=== PATIENT | female | born 1960 | race Two or more races ===

== ENCOUNTER 2019-12-31 19:01 | Emergency (ER) | payer MEDICAID, OTHER ==
[~2019-12-31] VITALS: Ht 157.5 cm; Wt 78.0 kg
[2019-12-31 19:26] VITALS: BP 153/83
[2019-12-31 20:02] LABS: Basophils # (auto) 0.1 10 ^3/uL (0-0.2); Basophils % (auto) 1.1 % (0.0-2.0); Eosinophils # (auto) 0.2 10 ^3/uL (0-0.8); Eosinophils % (auto) 2.6 % (0.0-7.0); Hematocrit 44.1 % (36.0-46.0); Hemoglobin 15.2 g/dL (12.2-16.2); Lymphocytes # (auto) 1.6 10 ^3/uL (0.4-5.4); Lymphocytes % (auto) 19.6 % (10.0-50.0); Mean Corpuscular Hemoglobin 28.6 pg (28.0-32.0); Mean Corpuscular Hgb Conc. 34.5 g/dL (32.0-36.0); Mean Corpuscular Volume 82.9 fL (80.0-100.0); Monocytes # (auto) 0.7 10 ^3/uL (0-1.3); Monocytes % (auto) 8.7 % (0.0-12.0); Neutrophils # (auto) 5.4 10 ^3/uL (1.6-8.6); Nucleated Red Blood Cells % 0.1 %; Platelet Count (auto) 215 10^3/uL (140-450); Red Blood Cells 5.32 10^6/uL (4.0-5.20); Red Cell Distribution Width 13.5 % (11.8-14.3); White Blood Cell 7.9 10^3/uL (4.4-10.8)
[2019-12-31 20:16] LABS: INR 1.41 (0.9-1.15); Partial Thromboplastin Time 29.3 sec (23.64-32.05)
[2019-12-31 20:19] LABS: Alanine Aminotransferase 31 U/L (13-56); Albumin 3.1 g/dL (3.4-5.0); Anion Gap 6 (5-15); Blood Urea Nitrogen 18 mg/dL (7-18); Carbon Dioxide 28 mmol/L (21-32); Chloride 97 mmol/L (98-107); Glucose 329 mg/dL (74-106); Magnesium 2.4 mg/dL (1.6-2.6); Sodium 131 mmol/L (136-145)
[2019-12-31 20:24] LABS: Alkaline Phosphatase 189 U/L (45-117); Aspartate Aminotransferase 25 U/L (15-37); BUN/Creatinine Ratio 14.1; Bilirubin, Total 0.4 mg/dL (0.2-1.0); GFR African American 55 mL/min; GFR Non-African American 45 mL/min; Total Protein 9.4 g/dL (6.4-8.2)
[2019-12-31 21:02] LABS: Urine Bacteria NONE SEEN /hpf (None Seen); Urine Blood 1+ /uL (Negative); Urine Specific Gravity 1.023 (1.001-1.035); Urine WBC 30 /hpf (0 - 5)
== END 2020-01-01 01:02 | disposition left against medical advice (07) ==
LOC: ER 19:03
DX: R42 Dizziness and giddiness (principal); M79.605 Pain in left leg; Z53.21 Procedure and treatment not carried out due to patient leaving prior to being seen by health care provider
CPT/HCPCS: 36415; 70450; 71045; 80053; 81001; 82010; 82140; 82962; 83735; 83880; 84484; 85025; 85610; 85730; 93005

== ENCOUNTER 2022-05-13 13:21 | Emergency (ER) | payer MEDICAID ==
[~2022-05-13] VITALS: Ht 162.6 cm; Wt 88.5 kg
[2022-05-13] MEDS ORDERED: cefTRIAXone SOD 500 MG VL IM ONE (14:00)
[2022-05-13 14:48] LABS: Basophils # (auto) 0 10 ^3/uL (0-0.2); Basophils % (auto) 0.6 % (0.0-2.0); Eosinophils # (auto) 0.3 10 ^3/uL (0-0.8); Eosinophils % (auto) 4.3 % (0.0-7.0); Hemoglobin 14.4 g/dL (12.2-16.2); Lymphocytes # (auto) 1.4 10 ^3/uL (0.4-5.4); Lymphocytes % (auto) 20.4 % (10.0-50.0); Mean Corpuscular Hemoglobin 28.6 pg (28.0-32.0); Mean Corpuscular Hgb Conc. 33.6 g/dL (32.0-36.0); Mean Corpuscular Volume 85.1 fL (80.0-100.0); Monocytes # (auto) 0.4 10 ^3/uL (0-1.3); Monocytes % (auto) 6.1 % (0.0-12.0); Neutrophils # (auto) 4.5 10 ^3/uL (1.6-8.6); Neutrophils % (auto) 68.6 % (37.0-80.0); Nucleated Red Blood Cells % 0.1 %; Red Blood Cells 5.05 10^6/uL (4.0-5.20); Red Cell Distribution Width 13.9 % (11.8-14.3); White Blood Cell 6.6 10^3/uL (4.4-10.8)
[2022-05-13 15:04] LABS: Albumin 3.9 g/dL (3.4-5.0); BUN/Creatinine Ratio 17.7; Calcium 9.2 mg/dL (8.5-10.1); Potassium 4.2 mmol/L (3.5-5.1)
[2022-05-13 15:07] LABS: Bilirubin, Total 0.5 mg/dL (0.2-1.0); Total Protein 8.4 g/dL (6.4-8.2)
[2022-05-13] MEDS ORDERED: HYDR1OIN EX (15:40)
[2022-05-13] MEDS ORDERED: LIDOCAINE 1% (LOCAL ANESTH.) PF 5ml SDV ONE (15:51)
[2022-05-13 16:39] VITALS: BP 156/82
[2022-05-13] MEDS ORDERED: LIDOCAINE 1% HCL (LOCAL ANESTH.) INJ 20ML MDV ID ONE (16:45)
== END 2022-05-13 16:40 | disposition home or self-care (01) ==
LOC: ER 13:21
DX: R21 Rash and other nonspecific skin eruption (principal); R10.31 Right lower quadrant pain; I10 Essential (primary) hypertension; E11.9 Type 2 diabetes mellitus without complications; I25.2 Old myocardial infarction; Z86.73 Personal history of transient ischemic attack (TIA), and cerebral infarction without residual deficits; Z90.49 Acquired absence of other specified parts of digestive tract; Z90.710 Acquired absence of both cervix and uterus; Z79.899 Other long term (current) drug therapy
CPT/HCPCS: 36415; 74176; 80053; 85025; 96372; 99284; J0696

== ENCOUNTER 2022-07-16 12:25 | Emergency (ER) | payer MEDICAID ==
[~2022-07-16] VITALS: Ht 162.6 cm; Wt 191.0 kg
[~2022-07-16 12:25] MED LIST: HYDR1OIN EX
[2022-07-16 13:06] LABS: Basophils # (auto) 0 10 ^3/uL (0-0.2); Basophils % (auto) 0.5 % (0.0-2.0); Eosinophils # (auto) 0.2 10 ^3/uL (0-0.8); Eosinophils % (auto) 4.2 % (0.0-7.0); Hematocrit 42.5 % (36.0-46.0); Hemoglobin 13.9 g/dL (12.2-16.2); Lymphocytes # (auto) 1.3 10 ^3/uL (0.4-5.4); Lymphocytes % (auto) 23.1 % (10.0-50.0); Mean Corpuscular Hemoglobin 27.5 pg (28.0-32.0); Mean Corpuscular Hgb Conc. 32.8 g/dL (32.0-36.0); Mean Corpuscular Volume 83.9 fL (80.0-100.0); Monocytes # (auto) 0.4 10 ^3/uL (0-1.3); Monocytes % (auto) 6.6 % (0.0-12.0); Neutrophils # (auto) 3.7 10 ^3/uL (1.6-8.6); Neutrophils % (auto) 65.6 % (37.0-80.0); Red Blood Cells 5.07 10^6/uL (4.0-5.20); Red Cell Distribution Width 13.5 % (11.8-14.3); White Blood Cell 5.7 10^3/uL (4.4-10.8)
[2022-07-16 13:23] LABS: Albumin 3.5 g/dL (3.4-5.0); Calcium 9.1 mg/dL (8.5-10.1); Magnesium 2.2 mg/dL (1.6-2.6); Potassium 4.5 mmol/L (3.5-5.1)
[2022-07-16 13:26] LABS: BUN/Creatinine Ratio 19.3; Bilirubin, Total 0.4 mg/dL (0.2-1.0); Total Protein 7.9 g/dL (6.4-8.2)
[2022-07-16] MEDS ORDERED: cloNIDine HCL 0.1 MG TAB PO ONE (13:30)
[2022-07-16] MEDS ORDERED: MECL12.514 PO (14:31)
[2022-07-16 15:22] VITALS: BP 145/86
== END 2022-07-16 15:24 | disposition home or self-care (01) ==
LOC: ER 12:25
DX: S09.8XXA Other specified injuries of head, initial encounter (principal); R42 Dizziness and giddiness; I16.0 Hypertensive urgency; I10 Essential (primary) hypertension; F12.10 Cannabis abuse, uncomplicated; M25.562 Pain in left knee; Z86.73 Personal history of transient ischemic attack (TIA), and cerebral infarction without residual deficits; Z90.49 Acquired absence of other specified parts of digestive tract; Z98.51 Tubal ligation status; Z90.710 Acquired absence of both cervix and uterus; Z87.891 Personal history of nicotine dependence; W01.0XXA Fall on same level from slipping, tripping and stumbling without subsequent striking against object, initial encounter; Y93.89 Activity, other specified; Y92.89 Other specified places as the place of occurrence of the external cause; Y99.8 Other external cause status
CPT/HCPCS: 36415; 70450; 72100; 73562; 80053; 82962; 83735; 84484; 85025; 93005

== ENCOUNTER 2022-08-04 15:58 | Emergency (ER) | payer MEDICAID ==
[~2022-08-04] VITALS: Ht 162.6 cm; Wt 82.0 kg
[~2022-08-04 15:58] MED LIST changes: +MECL12.514 PO
[2022-08-04] MEDS ORDERED: LABETALOL HCL 5 MG/ML 4ML SYRINGE IV ONE (16:30)
[2022-08-04] MEDS ORDERED: ASPirin 325 MG TAB PO ONE (17:30)
[2022-08-04] MEDS ORDERED: IOHEXOL 350 MG/ML 100ML IJ ONE (18:31)
[2022-08-04 18:38] VITALS: BP 180/95
[2022-08-04 19:01] LABS: Basophils # (auto) 0 10 ^3/uL (0-0.2); Basophils % (auto) 0.3 % (0.0-2.0); Eosinophils # (auto) 0.1 10 ^3/uL (0-0.8); Eosinophils % (auto) 1.8 % (0.0-7.0); Hematocrit 44.9 % (36.0-46.0); Hemoglobin 15.1 g/dL (12.2-16.2); Lymphocytes # (auto) 1.2 10 ^3/uL (0.4-5.4); Lymphocytes % (auto) 17.4 % (10.0-50.0); Mean Corpuscular Hgb Conc. 33.6 g/dL (32.0-36.0); Mean Corpuscular Volume 83.3 fL (80.0-100.0); Monocytes # (auto) 0.4 10 ^3/uL (0-1.3); Monocytes % (auto) 6.4 % (0.0-12.0); Neutrophils % (auto) 74.1 % (37.0-80.0); Nucleated Red Blood Cells % 0.1 %; Red Blood Cells 5.39 10^6/uL (4.0-5.20); Red Cell Distribution Width 13.8 % (11.8-14.3); White Blood Cell 6.8 10^3/uL (4.4-10.8)
[2022-08-04 19:17] LABS: Potassium 4.3 mmol/L (3.5-5.1)
[2022-08-04 19:20] LABS: Albumin 3.7 g/dL (3.4-5.0); BUN/Creatinine Ratio 16.9; Calcium 9.4 mg/dL (8.5-10.1); Magnesium 2.4 mg/dL (1.6-2.6)
[2022-08-04 19:23] LABS: Bilirubin, Total 0.6 mg/dL (0.2-1.0); Total Protein 8.3 g/dL (6.4-8.2)
== END 2022-08-04 19:03 | disposition short-term general hospital (02) ==
LOC: ER 15:58
DX: R29.810 Facial weakness (principal); R47.81 Slurred speech; R68.89 Other general symptoms and signs; F12.90 Cannabis use, unspecified, uncomplicated; E11.9 Type 2 diabetes mellitus without complications; I10 Essential (primary) hypertension; Z86.73 Personal history of transient ischemic attack (TIA), and cerebral infarction without residual deficits; Z90.49 Acquired absence of other specified parts of digestive tract; Z90.710 Acquired absence of both cervix and uterus; Z98.51 Tubal ligation status; Z87.891 Personal history of nicotine dependence
CPT/HCPCS: 36415; 70450; 70551; 71045; 80053; 82962; 83735; 84484; 85025; 93005; 96374; 99285; J3490

== ENCOUNTER 2022-08-20 11:36 | Inpatient (IN) | payer MEDICAID ==
[~2022-08-20] VITALS: Ht 162.6 cm; Wt 82.7 kg
[2022-08-20] MEDS ORDERED: LIDOCAINE VISCOUS 2% 15ML UD PO ONE (13:15)
[2022-08-20] MEDS ORDERED: ONDANSETRON HCL 4 MG/2 ML VIAL IV ONE (13:15)
[2022-08-20] MEDS ORDERED: FAMOTIDINE (10MG/ML) 2ML VL IV ONE (13:15)
[2022-08-20] MEDS ORDERED: MAALOX PLUS or MAALOX 30 ML PO ONE (13:15)
[2022-08-20 14:05] LABS: Basophils # (auto) 0 10 ^3/uL (0-0.2); Basophils % (auto) 0.2 % (0.0-2.0); Eosinophils # (auto) 0.1 10 ^3/uL (0-0.8); Eosinophils % (auto) 0.8 % (0.0-7.0); Hematocrit 45.7 % (36.0-46.0); Hemoglobin 15.2 g/dL (12.2-16.2); Lymphocytes # (auto) 0.9 10 ^3/uL (0.4-5.4); Lymphocytes % (auto) 10.6 % (10.0-50.0); Mean Corpuscular Hemoglobin 28.1 pg (28.0-32.0); Mean Corpuscular Hgb Conc. 33.2 g/dL (32.0-36.0); Mean Corpuscular Volume 84.6 fL (80.0-100.0); Monocytes # (auto) 0.5 10 ^3/uL (0-1.3); Monocytes % (auto) 5.3 % (0.0-12.0); Neutrophils # (auto) 7.1 10 ^3/uL (1.6-8.6); Neutrophils % (auto) 83.1 % (37.0-80.0); Nucleated Red Blood Cells % 0.1 %; Red Blood Cells 5.41 10^6/uL (4.0-5.20); Red Cell Distribution Width 14.2 % (11.8-14.3); White Blood Cell 8.6 10^3/uL (4.4-10.8)
[2022-08-20 14:06] LABS: BUN/Creatinine Ratio 15.4; Calcium 9.6 mg/dL (8.5-10.1); Potassium 3.5 mmol/L (3.5-5.1)
[2022-08-20 14:09] LABS: Total Protein 8.7 g/dL (6.4-8.2)
[2022-08-20 15:23] LABS: Urine Bacteria MOD /hpf (None Seen); Urine Blood TRACE /uL (Negative); Urine Budding Yeast FEW /hpf (None Seen); Urine Mucus FEW (None Seen); Urine Specific Gravity 1.027 (1.001-1.035); Urine WBC 80 /hpf (0 - 5)
[2022-08-20] MEDS: LACTATED RINGER'S 1,000 ML IV ONE ×2 (16:13→16:47)
[2022-08-20] MEDS ORDERED: HYDROcodone-ACET 5/325MG TAB PO ONE ×2 (16:45)
[2022-08-20] MEDS ORDERED: cefTRIAXone 1GM/50ML D5W 50 ML IV ONE (16:45)
[2022-08-20] MEDS ORDERED: cloNIDine HCL 0.1 MG TAB PO ONE (16:45)
[2022-08-20] MEDS ORDERED: ERTAPENEM SOD INJ 1 GM in SODIUM CHL 0.9% 50 ML IV ONE (17:15)
[2022-08-20] MEDS ORDERED: DEXTROSE (50%) 50ML SYRG IV PRN (19:30)
[2022-08-20] MEDS ORDERED: DOCUSATE SOD 100 MG CAP PO PRN (19:30)
[2022-08-20] MEDS ORDERED: ERTAPENEM SOD 1 GM INJ VIAL ONE (20:27)
[2022-08-20] MEDS: SODIUM CHLORIDE 0.9% 1,000 ML IV SCH (20:29)
[2022-08-20] MEDS: InsuLIN REG 1unit/0.01ml Soln (100units/ml) SC SCH (22:00)
[2022-08-20] MEDS: ACCU-CHEK COMFORT CURVE STRIP VI SCH (22:00)
[2022-08-21] MEDS: ONDANSETRON HCL 4 MG/2 ML VIAL IV PRN ×2 (00:04→22:40)
[2022-08-21 00:13] LABS: Sodium Urine 25 mmol/L (40-220)
[2022-08-21 01:18] LABS: Creatinine, Urine 385 mg/dL (30.0-125.0)
[2022-08-21] MEDS: SODIUM CHLORIDE 0.9% 1,000 ML IV SCH ×3 (03:50→20:30)
[2022-08-21 06:22] LABS: Albumin 3.4 g/dL (3.4-5.0); Calcium 9.4 mg/dL (8.5-10.1); Potassium 4.5 mmol/L (3.5-5.1)
[2022-08-21 06:25] LABS: BUN/Creatinine Ratio 19.1
[2022-08-21 06:27] LABS: Bilirubin, Total 0.8 mg/dL (0.2-1.0); Total Protein 7.8 g/dL (6.4-8.2)
[2022-08-21 06:36] LABS: Basophils # (auto) 0 10 ^3/uL (0-0.2); Basophils % (auto) 0.4 % (0.0-2.0); Eosinophils # (auto) 0.1 10 ^3/uL (0-0.8); Eosinophils % (auto) 1.1 % (0.0-7.0); Hematocrit 41.9 % (36.0-46.0); Hemoglobin 13.9 g/dL (12.2-16.2); Lymphocytes # (auto) 0.9 10 ^3/uL (0.4-5.4); Lymphocytes % (auto) 14.1 % (10.0-50.0); Mean Corpuscular Hemoglobin 28.4 pg (28.0-32.0); Mean Corpuscular Hgb Conc. 33.2 g/dL (32.0-36.0); Mean Corpuscular Volume 85.6 fL (80.0-100.0); Monocytes # (auto) 0.6 10 ^3/uL (0-1.3); Monocytes % (auto) 8.3 % (0.0-12.0); Neutrophils # (auto) 5.1 10 ^3/uL (1.6-8.6); Neutrophils % (auto) 76.1 % (37.0-80.0); Nucleated Red Blood Cells % 0.7 %; Red Blood Cells 4.89 10^6/uL (4.0-5.20); Red Cell Distribution Width 14.4 % (11.8-14.3); White Blood Cell 6.7 10^3/uL (4.4-10.8)
[2022-08-21] MEDS: ACCU-CHEK COMFORT CURVE STRIP VI SCH ×4 (06:55→21:28)
[2022-08-21] MEDS: InsuLIN REG 1unit/0.01ml Soln (100units/ml) SC SCH ×4 (06:55→21:28)
[2022-08-21] MEDS ORDERED: ERTAPENEM SOD INJ 1 GM in SODIUM CHL 0.9% 50 ML IV SCH (10:00)
[2022-08-21] MEDS: ENOXAPARIN SOD 40 MG/0.4 ML SYRINGE SC SCH (13:50)
[2022-08-21] MEDS: PANTOPRAZOLE 40 MG/10 ML VIAL INJ IV SCH (13:50)
[2022-08-21] MEDS: CEFEPIME 2 GM in SODIUM CHL 0.9% 50 ML IV SCH (15:41)
[2022-08-21 22:00] VITALS: BP 180/82
[2022-08-21] MEDS: MORPHINE SULFATE INJ 2 MG/ml SYRG IV PRN (22:54)
[2022-08-22 02:04] VITALS: BP 156/82
[2022-08-22] MEDS: CEFEPIME 2 GM in SODIUM CHL 0.9% 50 ML IV SCH ×2 (02:06→06:22)
[2022-08-22] MEDS: hydrALAZINE HCL 20 MG/ML VL IV PRN ×2 (02:36→10:57)
[2022-08-22] MEDS: MORPHINE SULFATE INJ 2 MG/ml SYRG IV PRN ×2 (04:01→10:57)
[2022-08-22] MEDS: SODIUM CHLORIDE 0.9% 1,000 ML IV SCH ×3 (04:50→21:30)
[2022-08-22 05:00] VITALS: BP 153/74
[2022-08-22] MEDS: ACCU-CHEK COMFORT CURVE STRIP VI SCH ×4 (06:22→22:12)
[2022-08-22] MEDS: InsuLIN REG 1unit/0.01ml Soln (100units/ml) SC SCH ×4 (06:23→22:16)
[2022-08-22] MEDS: PANTOPRAZOLE 40 MG/10 ML VIAL INJ IV SCH (08:30)
[2022-08-22] MEDS: ENOXAPARIN SOD 40 MG/0.4 ML SYRINGE SC SCH (08:31)
[2022-08-22] MEDS: ONDANSETRON HCL 4 MG/2 ML VIAL IV PRN (08:31)
[2022-08-22 09:00] VITALS: BP 150/70
[2022-08-22 12:57] VITALS: BP 169/71
[2022-08-22 17:13] VITALS: BP 140/69
[2022-08-22 22:00] VITALS: BP 149/66
[2022-08-23] MEDS: CEFEPIME 2 GM in SODIUM CHL 0.9% 50 ML IV SCH ×2 (00:18→14:32)
[2022-08-23] MEDS: MORPHINE SULFATE INJ 2 MG/ml SYRG IV PRN ×4 (00:20→20:36)
[2022-08-23] MEDS: SODIUM CHLORIDE 0.9% 1,000 ML IV SCH (05:29)
[2022-08-23] MEDS: InsuLIN REG 1unit/0.01ml Soln (100units/ml) SC SCH ×4 (05:30→20:34)
[2022-08-23] MEDS: ACCU-CHEK COMFORT CURVE STRIP VI SCH ×4 (05:30→20:33)
[2022-08-23] MEDS: ONDANSETRON HCL 4 MG/2 ML VIAL IV PRN ×3 (05:31→22:54)
[2022-08-23 07:14] LABS: Basophils # (auto) 0 10 ^3/uL (0-0.2); Basophils % (auto) 0.3 % (0.0-2.0); Eosinophils # (auto) 0.2 10 ^3/uL (0-0.8); Eosinophils % (auto) 3.1 % (0.0-7.0); Hematocrit 41.2 % (36.0-46.0); Hemoglobin 13.5 g/dL (12.2-16.2); Lymphocytes # (auto) 0.9 10 ^3/uL (0.4-5.4); Lymphocytes % (auto) 14.4 % (10.0-50.0); Mean Corpuscular Hemoglobin 27.8 pg (28.0-32.0); Mean Corpuscular Hgb Conc. 32.7 g/dL (32.0-36.0); Mean Corpuscular Volume 85.1 fL (80.0-100.0); Monocytes # (auto) 0.6 10 ^3/uL (0-1.3); Monocytes % (auto) 10.5 % (0.0-12.0); Neutrophils # (auto) 4.3 10 ^3/uL (1.6-8.6); Neutrophils % (auto) 71.7 % (37.0-80.0); Red Blood Cells 4.84 10^6/uL (4.0-5.20); Red Cell Distribution Width 14.9 % (11.8-14.3)
[2022-08-23 07:39] LABS: Calcium 9.1 mg/dL (8.5-10.1); Potassium 3.8 mmol/L (3.5-5.1)
[2022-08-23 09:00] VITALS: BP 141/63
[2022-08-23] MEDS: ENOXAPARIN SOD 40 MG/0.4 ML SYRINGE SC SCH (11:00)
[2022-08-23] MEDS: PANTOPRAZOLE 40 MG/10 ML VIAL INJ IV SCH (11:00)
[2022-08-23 13:00] VITALS: BP 165/67
[2022-08-23 14:36] VITALS: BP 140/68
[2022-08-23 17:00] VITALS: BP 157/73
[2022-08-23] MEDS: hydrALAZINE HCL 20 MG/ML VL IV PRN (21:35)
[2022-08-24] MEDS: CEFEPIME 2 GM in SODIUM CHL 0.9% 50 ML IV SCH ×2 (00:49→14:00)
[2022-08-24 05:00] VITALS: BP 148/76
[2022-08-24] MEDS: SODIUM CHLORIDE 0.9% 1,000 ML IV SCH ×5 (06:17→22:13)
[2022-08-24 06:18] LABS: Basophils # (auto) 0 10 ^3/uL (0-0.2); Basophils % (auto) 0.3 % (0.0-2.0); Eosinophils # (auto) 0 10 ^3/uL (0-0.8); Eosinophils % (auto) 0.9 % (0.0-7.0); Hematocrit 40.9 % (36.0-46.0); Hemoglobin 13.8 g/dL (12.2-16.2); Lymphocytes # (auto) 0.5 10 ^3/uL (0.4-5.4); Lymphocytes % (auto) 8.7 % (10.0-50.0); Mean Corpuscular Hemoglobin 28.4 pg (28.0-32.0); Mean Corpuscular Hgb Conc. 33.7 g/dL (32.0-36.0); Mean Corpuscular Volume 84.2 fL (80.0-100.0); Monocytes # (auto) 0.7 10 ^3/uL (0-1.3); Monocytes % (auto) 13.3 % (0.0-12.0); Neutrophils # (auto) 4.2 10 ^3/uL (1.6-8.6); Neutrophils % (auto) 76.8 % (37.0-80.0); Nucleated Red Blood Cells % 0.1 %; Red Blood Cells 4.86 10^6/uL (4.0-5.20); Red Cell Distribution Width 14.9 % (11.8-14.3); White Blood Cell 5.4 10^3/uL (4.4-10.8)
[2022-08-24] MEDS: MORPHINE SULFATE INJ 2 MG/ml SYRG IV PRN ×4 (06:20→20:07)
[2022-08-24] MEDS: ONDANSETRON HCL 4 MG/2 ML VIAL IV PRN ×4 (06:20→20:06)
[2022-08-24] MEDS: hydrALAZINE HCL 20 MG/ML VL IV PRN ×2 (06:21→23:14)
[2022-08-24] MEDS: ACCU-CHEK COMFORT CURVE STRIP VI SCH ×4 (06:24→22:12)
[2022-08-24] MEDS: InsuLIN REG 1unit/0.01ml Soln (100units/ml) SC SCH ×4 (06:25→22:00)
[2022-08-24 06:30] LABS: BUN/Creatinine Ratio 9.2; Calcium 9.4 mg/dL (8.5-10.1)
[2022-08-24] MEDS: SUCRALFATE 1 GM/10 ML ORAL SUSP PO SCH ×4 (07:12→22:13)
[2022-08-24 08:46] VITALS: BP 109/67
[2022-08-24] MEDS: PANTOPRAZOLE 40 MG/10 ML VIAL INJ IV SCH (09:51)
[2022-08-24] MEDS: ENOXAPARIN SOD 40 MG/0.4 ML SYRINGE SC SCH (09:52)
[2022-08-24] MEDS ORDERED: NITR-87 PO (12:34)
[2022-08-24] MEDS ORDERED: SUCR1TAB PO (12:34)
[2022-08-24] MEDS ORDERED: ONDA-144 PO (12:34)
[2022-08-24] MEDS ORDERED: PANT40T PO (12:34)
[2022-08-24 13:00] VITALS: BP 138/83
[2022-08-24 16:36] VITALS: BP 141/65
[2022-08-24 18:02] VITALS: BP 148/84
[2022-08-24] MEDS: NYSTATIN TOPICAL POWDER 15GM TOP SCH (22:00)
[2022-08-24 23:51] VITALS: BP 157/85
[2022-08-25] MEDS: CEFEPIME 2 GM in SODIUM CHL 0.9% 50 ML IV SCH (01:31)
[2022-08-25] MEDS: ONDANSETRON HCL 4 MG/2 ML VIAL IV PRN ×2 (01:33→05:30)
[2022-08-25] MEDS: MORPHINE SULFATE INJ 2 MG/ml SYRG IV PRN ×2 (01:34→05:30)
[2022-08-25] MEDS: ACCU-CHEK COMFORT CURVE STRIP VI SCH (05:31)
[2022-08-25] MEDS: SUCRALFATE 1 GM/10 ML ORAL SUSP PO SCH (05:31)
[2022-08-25] MEDS: InsuLIN REG 1unit/0.01ml Soln (100units/ml) SC SCH (05:31)
[2022-08-25 05:58] VITALS: BP 149/78
[2022-08-25 06:00] VITALS: BP 136/80
[2022-08-25 07:17] LABS: Hematocrit 39.7 % (36.0-46.0); Hemoglobin 13.2 g/dL (12.2-16.2); Mean Corpuscular Hemoglobin 28.3 pg (28.0-32.0); Mean Corpuscular Hgb Conc. 33.4 g/dL (32.0-36.0); Mean Corpuscular Volume 84.9 fL (80.0-100.0); Red Blood Cells 4.67 10^6/uL (4.0-5.20); Red Cell Distribution Width 14.9 % (11.8-14.3); White Blood Cell 3.6 10^3/uL (4.4-10.8)
[2022-08-25 07:23] LABS: Basophils % (manual) 0 (0.0-2.0); Blast Cells 0; Eosinophils % (manual) 0 (0-7); Metamyelocytes % 0; Myelocytes % 0; Promyelocytes % 0; Reactive Lymphocytes 0
[2022-08-25 07:42] LABS: BUN/Creatinine Ratio 10.3; Calcium 8.5 mg/dL (8.5-10.1); Potassium 3.9 mmol/L (3.5-5.1)
[2022-08-25] MEDS: SODIUM CHLORIDE 0.9% 1,000 ML IV SCH (07:50)
[2022-08-25 09:36] LABS: Band Neutrophils % (manual) 9; Lymphocytes % (manual) 11 (10.0-50.0); Monocytes % (manual) 19 (0-12)
[2022-08-25] MEDS: ENOXAPARIN SOD 40 MG/0.4 ML SYRINGE SC SCH (10:00)
[2022-08-25] MEDS: NYSTATIN TOPICAL POWDER 15GM TOP SCH (10:00)
[2022-08-25] MEDS: PANTOPRAZOLE 40 MG/10 ML VIAL INJ IV SCH (10:00)
== END 2022-08-25 09:30 | disposition home health service (06) | DRG 720 ==
LOC: ER 11:36 → OVERFLOW 19:28 → WEST WING 08-21 20:15
PROVIDERS: ADMIT Nurse Practitioner Family; ATTEND Family Medicine
DX: A41.51 Sepsis due to Escherichia coli [E. coli] (principal); N17.9 Acute kidney failure, unspecified; N10 Acute pyelonephritis; E11.9 Type 2 diabetes mellitus without complications; E86.0 Dehydration; B19.20 Unspecified viral hepatitis C without hepatic coma; B96.20 Unspecified Escherichia coli [E. coli] as the cause of diseases classified elsewhere; K74.60 Unspecified cirrhosis of liver; J45.909 Unspecified asthma, uncomplicated; I10 Essential (primary) hypertension; R16.1 Splenomegaly, not elsewhere classified; Z20.822 Contact with and (suspected) exposure to COVID-19; F10.10 Alcohol abuse, uncomplicated; F17.200 Nicotine dependence, unspecified, uncomplicated; J44.9 Chronic obstructive pulmonary disease, unspecified; Z90.49 Acquired absence of other specified parts of digestive tract; Z85.528 Personal history of other malignant neoplasm of kidney; Z86.73 Personal history of transient ischemic attack (TIA), and cerebral infarction without residual deficits; I25.2 Old myocardial infarction; Z71.6 Tobacco abuse counseling; Z90.5 Acquired absence of kidney; Z90.710 Acquired absence of both cervix and uterus; Z79.84 Long term (current) use of oral hypoglycemic drugs
CPT/HCPCS: 36415; 71045; 74176; 76705; 80048; 80053; 81001; 82570; 82962; 83605; 83690; 84300; 84484; 85007; 85025; 85027; 87086; 87088; 87186; 87426; 87804; 93005; 96361; 96374; 96375; C9113; G0378; J0696; J1335; J1815; J2405; J3490; J7060

== ENCOUNTER 2023-03-23 12:15 | Inpatient (IN) | payer MEDICAID ==
[~2023-03-23] VITALS: Ht 162.6 cm; Wt 76.0 kg
[~2023-03-23 12:15] MED LIST changes: +ALOG2.5T PO; +CLON0.1T PO; +CRAN500C7 PO; +DIPH50TA9 PO; +FLUT50SP; +HYDR-4297 PO; +IRBE150T49 PO; -MECL12.514 PO; +MECL1TAB31 PO; +NITR-87 PO; +ONDA-144 PO; +PANT40T PO; +SUCR1TAB PO; +TRAM50TA2 PO
[2023-03-23 13:47] LABS: Basophils # (auto) 0 10 ^3/uL (0-0.2); Basophils % (auto) 0.4 % (0.0-2.0); Eosinophils # (auto) 0.2 10 ^3/uL (0-0.8); Eosinophils % (auto) 4.2 % (0.0-7.0); Hematocrit 40.2 % (36.0-46.0); Hemoglobin 13.9 g/dL (12.2-16.2); Lymphocytes # (auto) 1.3 10 ^3/uL (0.4-5.4); Lymphocytes % (auto) 21.2 % (10.0-50.0); Mean Corpuscular Hemoglobin 30.4 pg (28.0-32.0); Mean Corpuscular Hgb Conc. 34.6 g/dL (32.0-36.0); Monocytes # (auto) 0.4 10 ^3/uL (0-1.3); Monocytes % (auto) 6.7 % (0.0-12.0); Neutrophils % (auto) 67.5 % (37.0-80.0); Nucleated Red Blood Cells % 0.1 %; Red Blood Cells 4.56 10^6/uL (4.0-5.20); Red Cell Distribution Width 13.4 % (11.8-14.3)
[2023-03-23 14:02] LABS: Urine Bacteria NONE SEEN /hpf (None Seen); Urine Blood 1+ /uL (Negative); Urine Clarity HAZY (Clear); Urine Color Yellow (Yellow); Urine Mucus FEW (None Seen); Urine Protein, UAD 2+ (Negative); Urine Specific Gravity 1.026 (1.001-1.035); Urine WBC 45 /hpf (0 - 5)
[2023-03-23 14:46] LABS: Erythrocyte Sedimentation Rate 36 mm/hr (0-20)
[2023-03-23 15:28] LABS: Alanine Aminotransferase 14 U/L (7-40); Albumin 4.2 g/dL (3.2-4.8); Alkaline Phosphatase 140 U/L (46-116); Anion Gap 4.9 (5-15); Aspartate Aminotransferase 17 U/L (13-40); BUN/Creatinine Ratio 17.4 (10.0-20.0); Blood Urea Nitrogen 20 mg/dL (9-23); Calcium 9.5 mg/dL (8.5-10.1); Carbon Dioxide 29.1 mmol/L (20-30); Chloride 104 mmol/L (98-107); Glucose 96 mg/dL (74-106); Potassium 4.2 mmol/L (3.5-5.1); Sodium 138 mmol/L (136-145)
[2023-03-23 15:29] LABS: Bilirubin, Total 0.5 mg/dL (0.2-1.0)
[2023-03-23 15:47] LABS: Creatine Kinase IFCC 48 U/L (34-145)
[2023-03-23] MEDS ORDERED: ACETAMINOPHEN 325 MG TAB PO PRN (20:00)
[2023-03-23] MEDS ORDERED: DEXTROSE (50%) 50ML SYRG IV PRN (20:00)
[2023-03-23] MEDS ORDERED: HYDROcodone-ACET 5/325MG TAB PO ONE (20:30)
[2023-03-23] MEDS ORDERED: hydrALAZINE HCL 20 MG/ML VL IV ONE (20:30)
[2023-03-23] MEDS ORDERED: cloNIDine HCL 0.1 MG TAB PO SCH (22:00)
[2023-03-24] MEDS: HYDROcodone-ACET 10/325MG TAB PO PRN ×3 (00:10→19:07)
[2023-03-24] MEDS: hydrALAZINE HCL 25 MG TAB PO SCH ×3 (00:10→21:25)
[2023-03-24] MEDS: ACCU-CHEK COMFORT CURVE STRIP VI SCH ×5 (00:11→21:15)
[2023-03-24] MEDS: InsuLIN REG 1unit/0.01ml Soln (100units/ml) SC SCH ×5 (00:11→21:15)
[2023-03-24 06:42] VITALS: PULSE 64; RESP 18; O2SAT 98
[2023-03-24 06:48] LABS: Basophils # (auto) 0 10 ^3/uL (0-0.2); Basophils % (auto) 0.6 % (0.0-2.0); Eosinophils # (auto) 0.3 10 ^3/uL (0-0.8); Hematocrit 41.8 % (36.0-46.0); Hemoglobin 14.6 g/dL (12.2-16.2); Lymphocytes # (auto) 1.4 10 ^3/uL (0.4-5.4); Lymphocytes % (auto) 24.2 % (10.0-50.0); Mean Corpuscular Hemoglobin 30.5 pg (28.0-32.0); Mean Corpuscular Hgb Conc. 34.8 g/dL (32.0-36.0); Mean Corpuscular Volume 87.6 fL (80.0-100.0); Monocytes # (auto) 0.5 10 ^3/uL (0-1.3); Monocytes % (auto) 8.2 % (0.0-12.0); Neutrophils # (auto) 3.6 10 ^3/uL (1.6-8.6); Nucleated Red Blood Cells % 0.6 %; Red Blood Cells 4.77 10^6/uL (4.0-5.20); Red Cell Distribution Width 13.6 % (11.8-14.3); White Blood Cell 5.8 10^3/uL (4.4-10.8)
[2023-03-24] MEDS: cloNIDine HCL 0.1 MG TAB PO PRN (06:53)
[2023-03-24 07:01] LABS: Alanine Aminotransferase 13 U/L (7-40); Alkaline Phosphatase 147 U/L (46-116); Calcium 9.7 mg/dL (8.5-10.1); Carbon Dioxide 27.8 mmol/L (20-30); Chloride 102 mmol/L (98-107); Glucose 103 mg/dL (74-106)
[2023-03-24 07:02] LABS: Albumin 4.5 g/dL (3.2-4.8); Anion Gap 7.2 (5-15); Aspartate Aminotransferase 18 U/L (13-40); BUN/Creatinine Ratio 14.3 (10.0-20.0); Bilirubin, Total 0.8 mg/dL (0.2-1.0); Blood Urea Nitrogen 15 mg/dL (9-23); Potassium 3.6 mmol/L (3.5-5.1); Sodium 137 mmol/L (136-145)
[2023-03-24 08:00] VITALS: PULSE 55; RESP 18; O2SAT 97
[2023-03-24] MEDS: cefTRIAXone 1GM/50ML D5W 50 ML IV SCH (09:50)
[2023-03-24] MEDS ORDERED: PANTOPRAZOLE 40 MG TAB PO SCH (10:00)
[2023-03-24] MEDS: LOSARTAN POTASSIUM 50 MG TAB PO SCH (10:33)
[2023-03-24 13:57] LABS: Triglycerides 124 mg/dL (< 150)
[2023-03-24 13:58] LABS: LDL Cholesterol 87 mg/dL (< 100)
[2023-03-24 13:59] LABS: Cholesterol 140 mg/dL (< 200); HDL Cholesterol 38 mg/dL (40-59)
[2023-03-24 20:00] VITALS: PULSE 55; RESP 16; O2SAT 97
[2023-03-24] MEDS: ATORVASTATIN 20 MG TAB PO SCH (21:25)
[2023-03-24] MEDS ORDERED: PNEUMOCOCCAL VACC POLYS 25 MCG/0.5 ML VIAL IM ONE (21:45)
[2023-03-24 22:17] VITALS: BP 152/70; PULSE 55; RESP 16; TEMP 97.6; O2SAT 97
[2023-03-25 05:07] VITALS: BP 149/61; PULSE 54; RESP 16; TEMP 97.5; O2SAT 98
[2023-03-25] MEDS: ACCU-CHEK COMFORT CURVE STRIP VI SCH ×4 (06:24→23:48)
[2023-03-25] MEDS: InsuLIN REG 1unit/0.01ml Soln (100units/ml) SC SCH ×4 (06:24→22:00)
[2023-03-25 08:09] LABS: Basophils # (auto) 0 10 ^3/uL (0-0.2); Basophils % (auto) 0.4 % (0.0-2.0); Eosinophils # (auto) 0.3 10 ^3/uL (0-0.8); Eosinophils % (auto) 6.1 % (0.0-7.0); Hematocrit 38.3 % (36.0-46.0); Lymphocytes # (auto) 1.5 10 ^3/uL (0.4-5.4); Lymphocytes % (auto) 28.8 % (10.0-50.0); Mean Corpuscular Hemoglobin 30.2 pg (28.0-32.0); Mean Corpuscular Volume 88.9 fL (80.0-100.0); Monocytes # (auto) 0.5 10 ^3/uL (0-1.3); Monocytes % (auto) 10.2 % (0.0-12.0); Neutrophils # (auto) 2.8 10 ^3/uL (1.6-8.6); Neutrophils % (auto) 54.5 % (37.0-80.0); Nucleated Red Blood Cells % 0.2 %; Red Blood Cells 4.31 10^6/uL (4.0-5.20); Red Cell Distribution Width 13.8 % (11.8-14.3); White Blood Cell 5.1 10^3/uL (4.4-10.8)
[2023-03-25 08:36] LABS: Anion Gap 5.8 (5-15); Carbon Dioxide 27.2 mmol/L (20-30); Chloride 107 mmol/L (98-107); Potassium 4.3 mmol/L (3.5-5.1); Sodium 140 mmol/L (136-145)
[2023-03-25 08:38] LABS: Calcium 9.2 mg/dL (8.5-10.1)
[2023-03-25 08:42] LABS: Glucose 93 mg/dL (74-106)
[2023-03-25 08:43] LABS: BUN/Creatinine Ratio 13.1 (10.0-20.0); Blood Urea Nitrogen 16 mg/dL (9-23)
[2023-03-25 09:00] VITALS: BP_SYST 159; BP_SYST 97; BP_DIAS 159; BP_DIAS 52; PULSE 64; RESP 20; TEMP 97.2; O2SAT 97
[2023-03-25] MEDS: cefTRIAXone 1GM/50ML D5W 50 ML IV SCH (09:25)
[2023-03-25] MEDS: ASPirin 81 mg TAB PO SCH (09:26)
[2023-03-25] MEDS: hydrALAZINE HCL 25 MG TAB PO SCH ×2 (09:26→23:45)
[2023-03-25] MEDS: HYDROmorphone HCL 2 MG TAB PO PRN ×2 (09:26→20:59)
[2023-03-25] MEDS: ATORVASTATIN 20 MG TAB PO SCH (09:26)
[2023-03-25] MEDS: LOSARTAN POTASSIUM 50 MG TAB PO SCH (09:27)
[2023-03-25] MEDS ORDERED: VANCOMYCIN PER PHARMACY 0 MG IV SCH (10:30)
[2023-03-25 13:00] VITALS: BP 157/74; PULSE 71; RESP 20; TEMP 97.7; O2SAT 98
[2023-03-25 16:59] VITALS: BP 142/75; PULSE 64; RESP 19; TEMP 97.8; O2SAT 98
[2023-03-25 20:00] VITALS: PULSE 67; RESP 17; O2SAT 95
[2023-03-25 22:00] VITALS: BP 148/67; PULSE 67; RESP 17; TEMP 97.5; O2SAT 95
[2023-03-26] MEDS: HYDROmorphone HCL 2 MG TAB PO PRN ×3 (02:56→15:03)
[2023-03-26 05:00] VITALS: BP 150/69; PULSE 67; RESP 18; TEMP 97.8; O2SAT 98
[2023-03-26] MEDS: InsuLIN REG 1unit/0.01ml Soln (100units/ml) SC SCH ×4 (07:00→22:45)
[2023-03-26 07:03] LABS: Anion Gap 5.9 (5-15); Carbon Dioxide 26.1 mmol/L (20-30); Chloride 105 mmol/L (98-107); Potassium 4.1 mmol/L (3.5-5.1); Sodium 137 mmol/L (136-145)
[2023-03-26 07:04] LABS: Calcium 9.2 mg/dL (8.7-10.4)
[2023-03-26 07:05] LABS: Basophils # (auto) 0 10 ^3/uL (0-0.2); Basophils % (auto) 0.6 % (0.0-2.0); Eosinophils # (auto) 0.3 10 ^3/uL (0-0.8); Eosinophils % (auto) 5.9 % (0.0-7.0); Hematocrit 37.1 % (36.0-46.0); Hemoglobin 12.9 g/dL (12.2-16.2); Lymphocytes # (auto) 1.6 10 ^3/uL (0.4-5.4); Lymphocytes % (auto) 29.6 % (10.0-50.0); Mean Corpuscular Hemoglobin 30.6 pg (28.0-32.0); Mean Corpuscular Hgb Conc. 34.6 g/dL (32.0-36.0); Mean Corpuscular Volume 88.2 fL (80.0-100.0); Monocytes # (auto) 0.5 10 ^3/uL (0-1.3); Monocytes % (auto) 9.8 % (0.0-12.0); Neutrophils # (auto) 2.9 10 ^3/uL (1.6-8.6); Neutrophils % (auto) 54.1 % (37.0-80.0); Nucleated Red Blood Cells % 0.2 %; Red Cell Distribution Width 13.3 % (11.8-14.3); White Blood Cell 5.4 10^3/uL (4.4-10.8)
[2023-03-26 07:09] LABS: BUN/Creatinine Ratio 15.6 (10.0-20.0); Blood Urea Nitrogen 21 mg/dL (9-23); Glucose 94 mg/dL (74-106)
[2023-03-26] MEDS: ACCU-CHEK COMFORT CURVE STRIP VI SCH ×4 (07:32→22:57)
[2023-03-26 08:00] VITALS: BP 165/66; PULSE 63; RESP 20; TEMP 97.4; O2SAT 97
[2023-03-26] MEDS: cefTRIAXone 1GM/50ML D5W 50 ML IV SCH (10:21)
[2023-03-26] MEDS: hydrALAZINE HCL 25 MG TAB PO SCH ×2 (10:22→22:00)
[2023-03-26] MEDS: ATORVASTATIN 20 MG TAB PO SCH (10:22)
[2023-03-26] MEDS: ASPirin 81 mg TAB PO SCH (10:22)
[2023-03-26] MEDS: LOSARTAN POTASSIUM 50 MG TAB PO SCH (10:23)
[2023-03-26 12:00] VITALS: BP 152/69; PULSE 53; RESP 19; TEMP 98.1; O2SAT 97
[2023-03-26] MEDS ORDERED: diphenhdrAMINE HCL 50 MG/1 ML VL IV ONE (14:00)
[2023-03-26] MEDS ORDERED: DAPTOmycin 0 MG in SODIUM CHL 0.9% 50 ML IV SCH (14:00)
[2023-03-26 16:00] VITALS: BP 188/95; PULSE 76; RESP 22; TEMP 97.5; O2SAT 98
[2023-03-26] MEDS: DAPTOmycin 250 MG in SODIUM CHL 0.9% 50 ML IV SCH (16:18)
[2023-03-26] MEDS: cloNIDine HCL 0.1 MG TAB PO PRN (17:36)
[2023-03-26 20:00] VITALS: PULSE 60; RESP 17; O2SAT 96
[2023-03-26] MEDS: HYDROcodone-ACET 5/325MG TAB PO PRN (20:45)
[2023-03-26 22:00] VITALS: BP 113/49; PULSE 60; RESP 17; TEMP 98; O2SAT 96
[2023-03-27] VITALS (7 sets, daily range): BP systolic 129–155; BP diastolic 53–80; PULSE 53–75; RESP 14–22; TEMP 97.5–98.1; O2SAT 94–100
[2023-03-27] MEDS: HYDROcodone-ACET 5/325MG TAB PO PRN (04:11)
[2023-03-27] MEDS ORDERED: DOCUSATE SOD 100 MG CAP PO ONE (05:00)
[2023-03-27 06:48] LABS: Basophils # (auto) 0 10 ^3/uL (0-0.2); Basophils % (auto) 0.7 % (0.0-2.0); Eosinophils # (auto) 0.3 10 ^3/uL (0-0.8); Eosinophils % (auto) 5.4 % (0.0-7.0); Hematocrit 36.8 % (36.0-46.0); Hemoglobin 12.6 g/dL (12.2-16.2); Lymphocytes # (auto) 1.5 10 ^3/uL (0.4-5.4); Lymphocytes % (auto) 31.1 % (10.0-50.0); Mean Corpuscular Hemoglobin 30.5 pg (28.0-32.0); Mean Corpuscular Hgb Conc. 34.2 g/dL (32.0-36.0); Mean Corpuscular Volume 89.2 fL (80.0-100.0); Monocytes # (auto) 0.5 10 ^3/uL (0-1.3); Monocytes % (auto) 10.5 % (0.0-12.0); Neutrophils # (auto) 2.6 10 ^3/uL (1.6-8.6); Neutrophils % (auto) 52.3 % (37.0-80.0); Nucleated Red Blood Cells % 0.1 %; Red Blood Cells 4.13 10^6/uL (4.0-5.20); Red Cell Distribution Width 13.6 % (11.8-14.3); White Blood Cell 4.9 10^3/uL (4.4-10.8)
[2023-03-27 06:55] LABS: Chloride 106 mmol/L (98-107); Potassium 4.3 mmol/L (3.5-5.1); Sodium 138 mmol/L (136-145)
[2023-03-27 06:56] LABS: Anion Gap 4.8 (5-15); Calcium 9.1 mg/dL (8.7-10.4); Carbon Dioxide 27.2 mmol/L (20-30)
[2023-03-27] MEDS: InsuLIN REG 1unit/0.01ml Soln (100units/ml) SC SCH ×4 (07:00→23:25)
[2023-03-27 07:01] LABS: BUN/Creatinine Ratio 15.9 (10.0-20.0); Blood Urea Nitrogen 21 mg/dL (9-23); Glucose 87 mg/dL (74-106)
[2023-03-27] MEDS: ACCU-CHEK COMFORT CURVE STRIP VI SCH ×4 (07:49→23:22)
[2023-03-27] MEDS: cefTRIAXone 1GM/50ML D5W 50 ML IV SCH (09:17)
[2023-03-27] MEDS: DOCUSATE SOD 100 MG CAP PO SCH ×2 (09:18→23:22)
[2023-03-27] MEDS: ASPirin 81 mg TAB PO SCH (09:18)
[2023-03-27] MEDS: ATORVASTATIN 20 MG TAB PO SCH (09:21)
[2023-03-27] MEDS: LOSARTAN POTASSIUM 50 MG TAB PO SCH (09:21)
[2023-03-27] MEDS: hydrALAZINE HCL 25 MG TAB PO SCH ×2 (09:21→23:22)
[2023-03-27] MEDS ORDERED: HYDROmorphone HCL 2 MG/ML VL/or syr IV PRN ×2 (10:45→11:00)
[2023-03-27] MEDS ORDERED: HYDROcodone-ACET 10/325MG TAB PO PRN (10:45)
[2023-03-27] MEDS: HYDROcodone-ACET 10/325MG TAB PO PRN (11:47)
[2023-03-27] MEDS: HYDROmorphone HCL 2 MG/ML VL/or syr IV PRN ×2 (13:09→20:46)
[2023-03-27] MEDS: DAPTOmycin 250 MG in SODIUM CHL 0.9% 50 ML IV SCH (16:29)
[2023-03-27] MEDS ORDERED: BENAZEPRIL HCL 10 MG TAB PO ONE (17:30)
[2023-03-28] VITALS (8 sets, daily range): BP systolic 118–162; BP diastolic 63–78; PULSE 57–68; RESP 15–20; TEMP 97.5–97.8; O2SAT 94–98
[2023-03-28] MEDS: HYDROmorphone HCL 2 MG/ML VL/or syr IV PRN ×3 (05:49→20:35)
[2023-03-28] MEDS: InsuLIN REG 1unit/0.01ml Soln (100units/ml) SC SCH ×4 (06:20→21:44)
[2023-03-28] MEDS: ACCU-CHEK COMFORT CURVE STRIP VI SCH ×5 (06:20→21:41)
[2023-03-28 08:32] LABS: Basophils # (auto) 0 10 ^3/uL (0-0.2); Basophils % (auto) 0.5 % (0.0-2.0); Eosinophils # (auto) 0.3 10 ^3/uL (0-0.8); Eosinophils % (auto) 5.7 % (0.0-7.0); Hematocrit 36.9 % (36.0-46.0); Hemoglobin 12.8 g/dL (12.2-16.2); Lymphocytes # (auto) 1.5 10 ^3/uL (0.4-5.4); Lymphocytes % (auto) 24.2 % (10.0-50.0); Mean Corpuscular Hemoglobin 30.7 pg (28.0-32.0); Mean Corpuscular Hgb Conc. 34.8 g/dL (32.0-36.0); Mean Corpuscular Volume 88.2 fL (80.0-100.0); Monocytes # (auto) 0.6 10 ^3/uL (0-1.3); Monocytes % (auto) 9.4 % (0.0-12.0); Neutrophils # (auto) 3.7 10 ^3/uL (1.6-8.6); Neutrophils % (auto) 60.2 % (37.0-80.0); Red Blood Cells 4.19 10^6/uL (4.0-5.20); White Blood Cell 6.1 10^3/uL (4.4-10.8)
[2023-03-28 08:35] LABS: Anion Gap 4.7 (5-15); Carbon Dioxide 26.3 mmol/L (20-30); Chloride 106 mmol/L (98-107); Sodium 137 mmol/L (136-145)
[2023-03-28 08:37] LABS: Calcium 9.2 mg/dL (8.5-10.1)
[2023-03-28 08:41] LABS: BUN/Creatinine Ratio 14.5 (10.0-20.0); Blood Urea Nitrogen 24 mg/dL (9-23); Glucose 92 mg/dL (74-106)
[2023-03-28] MEDS: ASPirin 81 mg TAB PO SCH (09:04)
[2023-03-28] MEDS: ATORVASTATIN 20 MG TAB PO SCH (09:04)
[2023-03-28] MEDS: cefTRIAXone 1GM/50ML D5W 50 ML IV SCH (09:05)
[2023-03-28] MEDS: hydrALAZINE HCL 25 MG TAB PO SCH ×2 (09:05→21:40)
[2023-03-28] MEDS: LOSARTAN POTASSIUM 50 MG TAB PO SCH (09:05)
[2023-03-28] MEDS: DOCUSATE SOD 100 MG CAP PO SCH ×2 (09:50→21:42)
[2023-03-28] MEDS: HYDROcodone-ACET 10/325MG TAB PO PRN (17:43)
[2023-03-29 05:00] VITALS: BP 140/57; PULSE 72; RESP 19; TEMP 97.5; O2SAT 98
[2023-03-29 05:50] LABS: Basophils # (auto) 0 10 ^3/uL (0-0.2); Basophils % (auto) 0.4 % (0.0-2.0); Eosinophils # (auto) 0.3 10 ^3/uL (0-0.8); Eosinophils % (auto) 5.8 % (0.0-7.0); Hematocrit 36.8 % (36.0-46.0); Hemoglobin 12.9 g/dL (12.2-16.2); Lymphocytes # (auto) 1.7 10 ^3/uL (0.4-5.4); Lymphocytes % (auto) 29.7 % (10.0-50.0); Mean Corpuscular Hemoglobin 30.9 pg (28.0-32.0); Mean Corpuscular Hgb Conc. 35.2 g/dL (32.0-36.0); Mean Corpuscular Volume 87.8 fL (80.0-100.0); Monocytes # (auto) 0.5 10 ^3/uL (0-1.3); Neutrophils # (auto) 3.2 10 ^3/uL (1.6-8.6); Neutrophils % (auto) 55.1 % (37.0-80.0); Nucleated Red Blood Cells % 0.1 %; Red Blood Cells 4.19 10^6/uL (4.0-5.20); Red Cell Distribution Width 13.1 % (11.8-14.3); White Blood Cell 5.8 10^3/uL (4.4-10.8)
[2023-03-29 05:51] LABS: Chloride 107 mmol/L (98-107); Potassium 3.8 mmol/L (3.5-5.1); Sodium 138 mmol/L (136-145)
[2023-03-29 05:52] LABS: Calcium 9.1 mg/dL (8.5-10.1)
[2023-03-29 05:57] LABS: BUN/Creatinine Ratio 16.7 (10.0-20.0); Blood Urea Nitrogen 22 mg/dL (9-23); Glucose 97 mg/dL (74-106)
[2023-03-29] MEDS: InsuLIN REG 1unit/0.01ml Soln (100units/ml) SC SCH ×4 (05:57→21:40)
[2023-03-29] MEDS: HYDROmorphone HCL 2 MG/ML VL/or syr IV PRN ×3 (05:58→18:23)
[2023-03-29 09:00] VITALS: BP 162/69; PULSE 64; RESP 20; TEMP 97; O2SAT 99
[2023-03-29] MEDS: cefTRIAXone 1GM/50ML D5W 50 ML IV SCH (09:15)
[2023-03-29] MEDS: ATORVASTATIN 20 MG TAB PO SCH (09:16)
[2023-03-29] MEDS: LOSARTAN POTASSIUM 50 MG TAB PO SCH (09:16)
[2023-03-29] MEDS: ASPirin 81 mg TAB PO SCH (09:17)
[2023-03-29] MEDS: hydrALAZINE HCL 25 MG TAB PO SCH ×2 (09:17→21:40)
[2023-03-29] MEDS: DOCUSATE SOD 100 MG CAP PO SCH ×2 (09:17→21:37)
[2023-03-29] MEDS: diphenhdrAMINE HCL 25 MG CAP PO PRN (09:17)
[2023-03-29] MEDS: ACCU-CHEK COMFORT CURVE STRIP VI SCH ×3 (11:44→21:38)
[2023-03-29 13:00] VITALS: BP 149/77; PULSE 72; RESP 18; TEMP 97.9; O2SAT 95
[2023-03-29] MEDS ORDERED: AMOXICILLIN TRIHYDRATE 250 MG CAP PO ONE (13:45)
[2023-03-29 17:00] VITALS: BP 151/71; PULSE 60; RESP 18; TEMP 97.8; O2SAT 98
[2023-03-29] MEDS: cloNIDine HCL 0.1 MG TAB PO PRN (18:23)
[2023-03-29 19:55] VITALS: O2SAT 94
[2023-03-29 22:00] VITALS: BP 124/65; PULSE 58; RESP 16; TEMP 97.6; O2SAT 93
[2023-03-29] MEDS: HYDROcodone-ACET 10/325MG TAB PO PRN (23:53)
[2023-03-30 05:00] VITALS: BP 119/66; PULSE 61; RESP 16; TEMP 97.5; O2SAT 96
[2023-03-30] MEDS: HYDROcodone-ACET 10/325MG TAB PO PRN ×3 (05:40→14:47)
[2023-03-30] MEDS: ACCU-CHEK COMFORT CURVE STRIP VI SCH ×2 (05:42→11:03)
[2023-03-30] MEDS: InsuLIN REG 1unit/0.01ml Soln (100units/ml) SC SCH ×2 (05:42→11:03)
[2023-03-30] MEDS: diphenhdrAMINE HCL 25 MG CAP PO PRN (05:44)
[2023-03-30 05:56] LABS: Basophils # (auto) 0 10 ^3/uL (0-0.2); Basophils % (auto) 0.7 % (0.0-2.0); Eosinophils # (auto) 0.3 10 ^3/uL (0-0.8); Eosinophils % (auto) 5.9 % (0.0-7.0); Hematocrit 36.2 % (36.0-46.0); Hemoglobin 12.6 g/dL (12.2-16.2); Lymphocytes # (auto) 1.7 10 ^3/uL (0.4-5.4); Lymphocytes % (auto) 32.5 % (10.0-50.0); Mean Corpuscular Hemoglobin 30.4 pg (28.0-32.0); Mean Corpuscular Hgb Conc. 34.7 g/dL (32.0-36.0); Mean Corpuscular Volume 87.8 fL (80.0-100.0); Monocytes # (auto) 0.5 10 ^3/uL (0-1.3); Monocytes % (auto) 9.5 % (0.0-12.0); Neutrophils # (auto) 2.7 10 ^3/uL (1.6-8.6); Neutrophils % (auto) 51.4 % (37.0-80.0); Red Blood Cells 4.13 10^6/uL (4.0-5.20); Red Cell Distribution Width 12.9 % (11.8-14.3); White Blood Cell 5.3 10^3/uL (4.4-10.8)
[2023-03-30 06:00] VITALS: BP 138/63; PULSE 67; RESP 20; TEMP 97.6; O2SAT 91
[2023-03-30 06:02] LABS: Chloride 106 mmol/L (98-107); Potassium 4.3 mmol/L (3.5-5.1); Sodium 137 mmol/L (136-145)
[2023-03-30 06:04] LABS: Calcium 9.1 mg/dL (8.7-10.4)
[2023-03-30 06:08] LABS: Glucose 96 mg/dL (74-106)
[2023-03-30 06:09] LABS: Blood Urea Nitrogen 21 mg/dL (9-23)
[2023-03-30 06:11] LABS: Creatine Kinase IFCC 31 U/L (34-145)
[2023-03-30 08:18] LABS: BUN/Creatinine Ratio 15.3 (10.0-20.0)
[2023-03-30 09:00] VITALS: BP 138/63; PULSE 67; RESP 20; TEMP 97.6; O2SAT 91
[2023-03-30] MEDS ORDERED: CEPHALEXIN 250 MG CAP PO ONE (09:00)
[2023-03-30] MEDS: ATORVASTATIN 20 MG TAB PO SCH (09:16)
[2023-03-30] MEDS: DOCUSATE SOD 100 MG CAP PO SCH (09:17)
[2023-03-30] MEDS: hydrALAZINE HCL 25 MG TAB PO SCH (09:17)
[2023-03-30] MEDS: ASPirin 81 mg TAB PO SCH (09:17)
[2023-03-30] MEDS: LOSARTAN POTASSIUM 50 MG TAB PO SCH (09:17)
[2023-03-30] MEDS ORDERED: ONDANSETRON HCL 4 MG/2 ML VIAL IV PRN (09:45)
[2023-03-30] MEDS ORDERED: CEPH250C PO (10:05)
[2023-03-30 13:00] VITALS: BP 144/88; PULSE 70; RESP 18; TEMP 97.6; O2SAT 93
== END 2023-03-30 16:57 | disposition home or self-care (01) | DRG 380 ==
LOC: ER 12:15 → OVERFLOW 20:02 → CENTRAL 03-24 18:09
PROVIDERS: ADMIT Internal Medicine Pulmonary Disease
DX: E11.621 Type 2 diabetes mellitus with foot ulcer (principal); L97.529 Non-pressure chronic ulcer of other part of left foot with unspecified severity; E11.51 Type 2 diabetes mellitus with diabetic peripheral angiopathy without gangrene; E11.22 Type 2 diabetes mellitus with diabetic chronic kidney disease; L03.116 Cellulitis of left lower limb; B95.61 Methicillin susceptible Staphylococcus aureus infection as the cause of diseases classified elsewhere; I16.0 Hypertensive urgency; N30.00 Acute cystitis without hematuria; N18.31 Chronic kidney disease, stage 3a; E78.5 Hyperlipidemia, unspecified; K74.60 Unspecified cirrhosis of liver; X58.XXXA Exposure to other specified factors, initial encounter; I12.9 Hypertensive chronic kidney disease with stage 1 through stage 4 chronic kidney disease, or unspecified chronic kidney disease; J45.909 Unspecified asthma, uncomplicated; Z80.6 Family history of leukemia; Z80.8 Family history of malignant neoplasm of other organs or systems; Z86.73 Personal history of transient ischemic attack (TIA), and cerebral infarction without residual deficits; Z87.440 Personal history of urinary (tract) infections; Z87.891 Personal history of nicotine dependence; Z88.0 Allergy status to penicillin; Z88.1 Allergy status to other antibiotic agents; Z88.3 Allergy status to other anti-infective agents; Z90.710 Acquired absence of both cervix and uterus; Z90.49 Acquired absence of other specified parts of digestive tract; Z88.2 Allergy status to sulfonamides; Z88.8 Allergy status to other drugs, medicaments and biological substances; I25.2 Old myocardial infarction; Y93.89 Activity, other specified; Y92.89 Other specified places as the place of occurrence of the external cause; Y99.8 Other external cause status
CPT/HCPCS: 36415; 71045; 73718; 80048; 80053; 80061; 81001; 82550; 82962; 83036; 83605; 84300; 84484; 85025; 85652; 86141; 87040; 87077; 87186; 87205; G0378; J0696; J1815; J2405

== ENCOUNTER 2023-04-16 13:07 | Emergency (ER) | payer MEDICAID ==
[~2023-04-16] VITALS: Ht 162.6 cm; Wt 70.0 kg
[~2023-04-16 13:07] MED LIST changes: +CEPH250C PO; -NITR-87 PO
[2023-04-16 13:16] VITALS: BP 188/74; RESP 20; O2SAT 98
[2023-04-16 14:28] LABS: Basophils # (auto) 0 10 ^3/uL (0-0.2); Basophils % (auto) 0.6 % (0.0-2.0); Eosinophils # (auto) 0.3 10 ^3/uL (0-0.8); Eosinophils % (auto) 6.1 % (0.0-7.0); Hematocrit 39.8 % (36.0-46.0); Hemoglobin 13.7 g/dL (12.2-16.2); Lymphocytes # (auto) 1.2 10 ^3/uL (0.4-5.4); Lymphocytes % (auto) 26.5 % (10.0-50.0); Mean Corpuscular Hemoglobin 30.9 pg (28.0-32.0); Mean Corpuscular Hgb Conc. 34.5 g/dL (32.0-36.0); Mean Corpuscular Volume 89.6 fL (80.0-100.0); Monocytes # (auto) 0.4 10 ^3/uL (0-1.3); Neutrophils # (auto) 2.7 10 ^3/uL (1.6-8.6); Neutrophils % (auto) 57.8 % (37.0-80.0); Nucleated Red Blood Cells % 0.2 %; Red Blood Cells 4.44 10^6/uL (4.0-5.20); Red Cell Distribution Width 13.3 % (11.8-14.3); White Blood Cell 4.7 10^3/uL (4.4-10.8)
[2023-04-16 14:43] LABS: Alanine Aminotransferase 18 U/L (7-40); Albumin 4.2 g/dL (3.2-4.8); Alkaline Phosphatase 118 U/L (46-116); Anion Gap 4 (5-15); Aspartate Aminotransferase 25 U/L (13-40); BUN/Creatinine Ratio 15.1 (10.0-20.0); Blood Urea Nitrogen 19 mg/dL (9-23); Calcium 9.9 mg/dL (8.5-10.1); Carbon Dioxide 27 mmol/L (20-30); Chloride 107 mmol/L (98-107); Glucose 117 mg/dL (74-106); Potassium 4.3 mmol/L (3.5-5.1); Sodium 138 mmol/L (136-145)
[2023-04-16 14:44] LABS: Bilirubin, Total 0.4 mg/dL (0.2-1.0); Total Protein 8.4 g/dL (5.7-8.2)
[2023-04-16 15:06] LABS: Urine Bacteria NONE SEEN /hpf (None Seen); Urine Blood TRACE /uL (Negative); Urine Clarity Clear (Clear); Urine Color Yellow (Yellow); Urine Mucus FEW (None Seen); Urine Protein, UAD 2+ (Negative); Urine Specific Gravity 1.026 (1.001-1.035); Urine Urobilinogen Normal (Negative); Urine WBC 19 /hpf (0 - 5); Urine pH 5.5 (5.0-8.0)
[2023-04-16 16:35] VITALS: PULSE 73
[2023-04-16] MEDS ORDERED: CIPR-173 PO (17:13)
== END 2023-04-16 18:01 | disposition home or self-care (01) ==
LOC: ER 13:07
DX: N39.0 Urinary tract infection, site not specified (principal); R29.810 Facial weakness; I10 Essential (primary) hypertension; E11.9 Type 2 diabetes mellitus without complications; J45.909 Unspecified asthma, uncomplicated; I25.2 Old myocardial infarction; F17.210 Nicotine dependence, cigarettes, uncomplicated; F15.90 Other stimulant use, unspecified, uncomplicated; Z85.9 Personal history of malignant neoplasm, unspecified; Z90.710 Acquired absence of both cervix and uterus; Z90.49 Acquired absence of other specified parts of digestive tract; Z98.890 Other specified postprocedural states; Z88.8 Allergy status to other drugs, medicaments and biological substances; Z79.899 Other long term (current) drug therapy
CPT/HCPCS: 36415; 70450; 80053; 81001; 82962; 85025; 93005

== ENCOUNTER 2023-07-08 13:09 | Emergency (ER) | payer MEDICAID ==
[~2023-07-08] VITALS: Ht 162.6 cm; Wt 73.6 kg
[~2023-07-08 13:09] MED LIST changes: +CIPR-173 PO
[2023-07-08 16:15] VITALS: BP 181/83; PULSE 74; RESP 20; TEMP 97.4; O2SAT 98
== END 2023-07-08 16:21 | disposition home or self-care (01) ==
LOC: ER 13:09
DX: M65.322 Trigger finger, left index finger (principal); I12.9 Hypertensive chronic kidney disease with stage 1 through stage 4 chronic kidney disease, or unspecified chronic kidney disease; E11.22 Type 2 diabetes mellitus with diabetic chronic kidney disease; N18.9 Chronic kidney disease, unspecified; J45.909 Unspecified asthma, uncomplicated; I25.2 Old myocardial infarction; Z86.73 Personal history of transient ischemic attack (TIA), and cerebral infarction without residual deficits; Z90.49 Acquired absence of other specified parts of digestive tract; Z90.710 Acquired absence of both cervix and uterus; Z79.899 Other long term (current) drug therapy; Z79.1 Long term (current) use of non-steroidal anti-inflammatories (NSAID); Z88.1 Allergy status to other antibiotic agents; Z88.2 Allergy status to sulfonamides; Z88.8 Allergy status to other drugs, medicaments and biological substances
CPT/HCPCS: 29130; 73130

== ENCOUNTER 2023-08-14 13:18 | Inpatient (IN) | payer MEDICAID ==
[~2023-08-14] VITALS: Ht 162.6 cm; Wt 76.0 kg
[2023-08-14] MEDS ORDERED: cloNIDine HCL 0.1 MG TAB PO ONE (14:00)
[2023-08-14 15:27] LABS: Urine Bacteria FEW /hpf (None Seen); Urine Blood 1+ /uL (Negative); Urine Clarity HAZY (Clear); Urine Color Yellow (Yellow); Urine Protein, UAD 2+ (Negative); Urine WBC 20 /hpf (0 - 5)
[2023-08-14] MEDS ORDERED: LORazepam 2MG/ML-1ML VIAL IV ONE (16:00)
[2023-08-14] MEDS ORDERED: SODIUM CHLORIDE 0.9% 1,000 ML IV ONE (16:00)
[2023-08-14] MEDS ORDERED: METOCLOPRAMIDE HCL 5MG/ml INJ 2ml VIAL IV ONE (16:00)
[2023-08-14] MEDS ORDERED: LABETALOL HCL 5 MG/ML 4ML SYRINGE IV ONE (16:00)
[2023-08-14] MEDS ORDERED: SODIUM CHLORIDE 0.9% 1,000 ML IVB ONE (16:00)
[2023-08-14] MEDS ORDERED: hydrALAZINE HCL 20 MG/ML VL IV ONE (16:00)
[2023-08-14] MEDS: ONDANSETRON HCL 4 MG/2 ML VIAL IV ONE ×2 (16:00→18:10)
[2023-08-14] MEDS ORDERED: HYDROmorphone HCL 2 MG/ML VL/or syr IV ONE (16:00)
[2023-08-14 16:49] LABS: Basophils # (auto) 0 10 ^3/uL (0-0.2); Basophils % (auto) 0.4 % (0.0-2.0); Eosinophils # (auto) 0.1 10 ^3/uL (0-0.8); Eosinophils % (auto) 1.3 % (0.0-7.0); Hematocrit 45.9 % (36.0-46.0); Hemoglobin 15.6 g/dL (12.2-16.2); Lymphocytes # (auto) 1.1 10 ^3/uL (0.4-5.4); Lymphocytes % (auto) 14.3 % (10.0-50.0); Mean Corpuscular Hemoglobin 29.7 pg (28.0-32.0); Mean Corpuscular Volume 87.2 fL (80.0-100.0); Monocytes # (auto) 0.3 10 ^3/uL (0-1.3); Monocytes % (auto) 4.5 % (0.0-12.0); Neutrophils % (auto) 79.5 % (37.0-80.0); Nucleated Red Blood Cells % 0.2 %; Red Blood Cells 5.26 10^6/uL (4.0-5.20); Red Cell Distribution Width 13.5 % (11.8-14.3); White Blood Cell 7.5 10^3/uL (4.4-10.8)
[2023-08-14 17:17] LABS: INR 1.43 (0.9-1.15); Partial Thromboplastin Time 20.1 SEC (24.5-34.5); Prothrombin Time 14.7 sec (9.3-11.8)
[2023-08-14 17:28] LABS: Alkaline Phosphatase 142 U/L (46-116); Glucose 127 mg/dL (74-106)
[2023-08-14 17:29] LABS: Magnesium 2.1 mg/dL (1.6-2.6)
[2023-08-14 17:30] LABS: Aspartate Aminotransferase 21 U/L (13-40); Bilirubin, Total 0.6 mg/dL (0.2-1.0)
[2023-08-14 18:08] LABS: Alanine Aminotransferase 15 U/L (7-40); Albumin 4.5 g/dL (3.2-4.8); Anion Gap 7 (5-15); BUN/Creatinine Ratio 9.6 (10.0-20.0); Blood Urea Nitrogen 11 mg/dL (9-23); Calcium 10.1 mg/dL (8.7-10.4); Carbon Dioxide 27 mmol/L (20-30); Chloride 103 mmol/L (98-107); Lipase 35 U/L (12-53); Potassium 4.5 mmol/L (3.5-5.1); Sodium 137 mmol/L (136-145)
[2023-08-14] MEDS ORDERED: DOCUSATE SOD 100 MG CAP PO PRN (21:30)
[2023-08-14] MEDS ORDERED: ACETAMINOPHEN 325 MG TAB PO PRN (21:30)
[2023-08-14] MEDS ORDERED: MAALOX PLUS or MAALOX 30 ML PO PRN (21:30)
[2023-08-14] MEDS ORDERED: HYDROmorphone HCL 2 MG/ML VL/or syr IV PRN (21:30)
[2023-08-14] MEDS ORDERED: LORazepam 2MG/ML-1ML VIAL IV PRN (21:30)
[2023-08-14] MEDS: SODIUM CHLORIDE 0.9% 1,000 ML IV SCH (22:25)
[2023-08-14] MEDS: cefTRIAXone 1GM/50ML D5W 50 ML IV SCH (22:35)
[2023-08-14] MEDS: ONDANSETRON HCL 4 MG/2 ML VIAL IV PRN (22:36)
[2023-08-15] MEDS: ONDANSETRON HCL 4 MG/2 ML VIAL IV PRN ×2 (02:47→19:46)
[2023-08-15] MEDS: HYDROcodone-ACET 5/325MG TAB PO PRN ×2 (02:47→06:47)
[2023-08-15 05:17] LABS: Basophils # (auto) 0 10 ^3/uL (0-0.2); Basophils % (auto) 0.3 % (0.0-2.0); Eosinophils # (auto) 0 10 ^3/uL (0-0.8); Eosinophils % (auto) 0.4 % (0.0-7.0); Hematocrit 45.9 % (36.0-46.0); Hemoglobin 15.1 g/dL (12.2-16.2); Lymphocytes % (auto) 13.6 % (10.0-50.0); Mean Corpuscular Hgb Conc. 32.8 g/dL (32.0-36.0); Mean Corpuscular Volume 91.3 fL (80.0-100.0); Monocytes # (auto) 0.4 10 ^3/uL (0-1.3); Monocytes % (auto) 4.9 % (0.0-12.0); Neutrophils # (auto) 5.8 10 ^3/uL (1.6-8.6); Neutrophils % (auto) 80.8 % (37.0-80.0); Nucleated Red Blood Cells % 0.4 %; Red Blood Cells 5.03 10^6/uL (4.0-5.20); Red Cell Distribution Width 14.1 % (11.8-14.3); White Blood Cell 7.2 10^3/uL (4.4-10.8)
[2023-08-15 06:16] LABS: Chloride 106 mmol/L (98-107); Potassium 4.5 mmol/L (3.5-5.1); Sodium 136 mmol/L (136-145)
[2023-08-15 06:17] LABS: Anion Gap 9 (5-15); Carbon Dioxide 21 mmol/L (20-30)
[2023-08-15 06:18] LABS: Calcium 9.4 mg/dL (8.7-10.4)
[2023-08-15 06:22] LABS: Glucose 134 mg/dL (74-106)
[2023-08-15 06:23] LABS: BUN/Creatinine Ratio 9.7 (10.0-20.0); Blood Urea Nitrogen 11 mg/dL (9-23)
[2023-08-15] MEDS ORDERED: cefTRIAXone 1GM/50ML D5W 50 ML IV SCH (10:00)
[2023-08-15] MEDS: cefTRIAXone 1GM/50ML D5W 50 ML IV SCH (10:53)
[2023-08-15] MEDS: SODIUM CHLORIDE 0.9% 1,000 ML IV SCH (17:31)
[2023-08-15] MEDS: OXYCODONE W/ ACETAMINOPHEN 5/325MG TABLET PO PRN (17:31)
[2023-08-15] MEDS: hydrALAZINE HCL 20 MG/ML VL IV PRN (18:17)
[2023-08-15 20:00] VITALS: PULSE 87
[2023-08-15 20:02] VITALS: PULSE 85; RESP 18; O2SAT 95
[2023-08-15 20:03] VITALS: BP 119/80; PULSE 85; RESP 18; TEMP 98.7; O2SAT 95
[2023-08-15] MEDS: SENNA 8.6 MG TAB PO SCH (21:34)
[2023-08-15] MEDS: HYDROmorphone HCL 2 MG/ML VL/or syr IV PRN (21:39)
[2023-08-15 21:59] VITALS: BP 119/80; PULSE 85; RESP 18; TEMP 98.7; O2SAT 95
[2023-08-16] VITALS (8 sets, daily range): BP systolic 99–153; BP diastolic 63–73; PULSE 66–78; RESP 16–20; TEMP 97.7–98.7; O2SAT 91–97
[2023-08-16] MEDS: HYDROmorphone HCL 2 MG/ML VL/or syr IV PRN ×4 (03:50→20:25)
[2023-08-16] MEDS: ONDANSETRON HCL 4 MG/2 ML VIAL IV PRN ×4 (03:50→19:07)
[2023-08-16] MEDS: cefTRIAXone 1GM/50ML D5W 50 ML IV SCH (08:38)
[2023-08-16] MEDS: SODIUM CHLORIDE 0.9% 1,000 ML IV SCH (09:27)
[2023-08-16 13:35] LABS: Hepatitis B Core Total AB Negative (Negative)
[2023-08-16 13:53] LABS: Hepatitis A Total Antibody Positive (Negative); Hepatitis B Surface Antibody Negative (Negative); Hepatitis B Surface Antigen Negative (Negative)
[2023-08-16 13:57] LABS: Hepatitis C Antibody Reactive (Negative)
[2023-08-16] MEDS: SENNA 8.6 MG TAB PO SCH (20:29)
[2023-08-16] MEDS: METOCLOPRAMIDE HCL 5MG/ml INJ 2ml VIAL IV PRN (20:42)
[2023-08-17] VITALS (7 sets, daily range): BP systolic 144–177; BP diastolic 64–74; PULSE 61–77; RESP 16–19; TEMP 97.8–98.2; O2SAT 93–95
[2023-08-17] MEDS: SODIUM CHLORIDE 0.9% 1,000 ML IV SCH ×2 (01:44→16:47)
[2023-08-17] MEDS: HYDROmorphone HCL 2 MG/ML VL/or syr IV PRN ×3 (02:41→16:48)
[2023-08-17] MEDS: cefTRIAXone 1GM/50ML D5W 50 ML IV SCH (08:19)
[2023-08-17] MEDS: ONDANSETRON HCL 4 MG/2 ML VIAL IV PRN ×3 (08:19→16:47)
[2023-08-17] MEDS ORDERED: LACTULOSE 20Gm/30ML SOLN PO SCH (10:00)
[2023-08-17] MEDS: OXYCODONE W/ ACETAMINOPHEN 5/325MG TABLET PO PRN (12:58)
[2023-08-17] MEDS: hydrALAZINE HCL 20 MG/ML VL IV PRN (12:59)
[2023-08-17] MEDS ORDERED: PANT40TA57 PO (14:55)
[2023-08-17] MEDS ORDERED: CIPR-173 PO ×2 (14:55)
[2023-08-17] MEDS ORDERED: CEFD300C2 PO (14:56)
[2023-08-17] MEDS: METOCLOPRAMIDE HCL 5MG/ml INJ 2ml VIAL IV PRN (19:19)
== END 2023-08-17 19:38 | disposition home or self-care (01) | DRG 463 ==
LOC: ER 13:18 → TELE 21:41 → TELE-CENTR 08-15 19:39
PROVIDERS: ADMIT Hospitalist; ATTEND Hospitalist
DX: N12 Tubulo-interstitial nephritis, not specified as acute or chronic (principal); N17.9 Acute kidney failure, unspecified; E11.22 Type 2 diabetes mellitus with diabetic chronic kidney disease; K74.60 Unspecified cirrhosis of liver; I12.9 Hypertensive chronic kidney disease with stage 1 through stage 4 chronic kidney disease, or unspecified chronic kidney disease; J45.909 Unspecified asthma, uncomplicated; N18.9 Chronic kidney disease, unspecified; Z88.1 Allergy status to other antibiotic agents; Z88.2 Allergy status to sulfonamides; Z88.8 Allergy status to other drugs, medicaments and biological substances; Z98.51 Tubal ligation status; Z90.49 Acquired absence of other specified parts of digestive tract; Z86.73 Personal history of transient ischemic attack (TIA), and cerebral infarction without residual deficits; Z88.3 Allergy status to other anti-infective agents; Z90.5 Acquired absence of kidney; Z90.710 Acquired absence of both cervix and uterus; Z92.3 Personal history of irradiation
CPT/HCPCS: 36415; 71045; 74176; 76705; 80048; 80053; 81001; 82105; 82962; 83605; 83690; 83735; 84484; 84702; 85025; 85610; 85730; 86704; 86706; 86708; 86803; 87040; 87086; 87340; 97163; G0378; J2405

== ENCOUNTER → 2024-01-17 | Outpatient (CLI) | payer MEDICAID ==
[~2024-01-17] MED LIST changes: +CEFD300C2 PO; -CEPH250C PO; -CIPR-173 PO; -CRAN500C7 PO; -HYDR-4297 PO; +HYDR50TA47 PO; +MECL12.586 PO; -MECL1TAB31 PO; -PANT40T PO; +PANT40TA57 PO; -SUCR1TAB PO; -TRAM50TA2 PO
== END | disposition home or self-care (01) ==
LOC: XYW 12:14
PROVIDERS: ATTEND Student in an Organized Health Care Education/Training Program
DX: I35.1 Nonrheumatic aortic (valve) insufficiency (principal); I51.89 Other ill-defined heart diseases; R07.9 Chest pain, unspecified; R42 Dizziness and giddiness
CPT/HCPCS: 93306

== ENCOUNTER → 2024-02-08 | Outpatient (CLI) | payer MEDICAID ==
[~2024-02-08] VITALS: Ht 162.6 cm; Wt 78.9 kg
[2024-02-08] MEDS: METOPROLOL TARTRATE 1MG/1ML-5ML VIAL IV ONE (08:36)
[2024-02-08] MEDS: ATROPINE SULF 0.5 MG/5ML SYR ONE (08:36)
[2024-02-08] MEDS: DOBUTamine 1000MCG/ML 250 ML IV ONE (08:37)
[2024-02-08 09:57] VITALS: BP 189/89
[2024-02-08] MEDS: DOBUTamine 1000MCG/ML 100 ML IV ONE (09:57)
== END | disposition home or self-care (01) ==
LOC: XY 08:18
PROVIDERS: ATTEND Student in an Organized Health Care Education/Training Program
DX: Z01.810 Encounter for preprocedural cardiovascular examination (principal); R07.9 Chest pain, unspecified; R06.02 Shortness of breath; I10 Essential (primary) hypertension; E78.5 Hyperlipidemia, unspecified; N28.9 Disorder of kidney and ureter, unspecified; F17.200 Nicotine dependence, unspecified, uncomplicated; Z87.19 Personal history of other diseases of the digestive system
CPT/HCPCS: 93017; 93350; J1250; J0461

== ENCOUNTER 2024-02-14 16:35 | Inpatient (IN) | payer MEDICAID ==
[~2024-02-14] VITALS: Ht 162.6 cm; Wt 93.0 kg
[2024-02-14 17:44] LABS: Basophils # (auto) 0 10 ^3/uL (0-0.2); Basophils % (auto) 0.5 % (0.0-2.0); Eosinophils # (auto) 0.2 10 ^3/uL (0-0.8); Eosinophils % (auto) 3.9 % (0.0-7.0); Hematocrit 39.4 % (36.0-46.0); Hemoglobin 13.8 g/dL (12.2-16.2); Lymphocytes # (auto) 1.4 10 ^3/uL (0.4-5.4); Lymphocytes % (auto) 23.3 % (10.0-50.0); Mean Corpuscular Hemoglobin 30.8 pg (28.0-32.0); Mean Corpuscular Volume 87.9 fL (80.0-100.0); Monocytes # (auto) 0.5 10 ^3/uL (0-1.3); Monocytes % (auto) 8.7 % (0.0-12.0); Neutrophils # (auto) 3.7 10 ^3/uL (1.6-8.6); Neutrophils % (auto) 63.6 % (37.0-80.0); Nucleated Red Blood Cells % 0.1 %; Red Blood Cells 4.48 10^6/uL (4.0-5.20); Red Cell Distribution Width 13.3 % (11.8-14.3); White Blood Cell 5.9 10^3/uL (4.4-10.8)
[2024-02-14 18:04] LABS: Chloride 110 mmol/L (98-107); Potassium 3.8 mmol/L (3.5-5.1); Sodium 137 mmol/L (136-145)
[2024-02-14 18:05] LABS: Anion Gap 5 (5-15); Calcium 9.3 mg/dL (8.7-10.4); Carbon Dioxide 22 mmol/L (20-30)
[2024-02-14 18:10] LABS: BUN/Creatinine Ratio 8.3 (10.0-20.0); Blood Urea Nitrogen 11 mg/dL (9-23); Glucose 159 mg/dL (74-106)
[2024-02-14] MEDS ORDERED: NITROGLYCERIN 0.4 MG SL TAB SL PRN (18:15)
[2024-02-14] MEDS ORDERED: hydrALAZINE HCL 20 MG/ML VL IV PRN (18:15)
[2024-02-14] MEDS ORDERED: MORPHINE SULFATE INJ 2 MG/ml SYRG IV PRN (18:15)
[2024-02-14] MEDS ORDERED: DEXTROSE (50%) 50ML SYRG IV PRN (18:15)
[2024-02-14 18:26] LABS: Triglycerides 235 mg/dL (< 150)
[2024-02-14 18:27] LABS: LDL Cholesterol 72 mg/dL (< 100)
[2024-02-14 18:28] LABS: Cholesterol 141 mg/dL (< 200); HDL Cholesterol 32 mg/dL (40-59)
[2024-02-14] MEDS: cloNIDine HCL 0.1 MG TAB PO ONE (18:39)
[2024-02-14 19:02] VITALS: BP 165/123; PULSE 72; RESP 15; TEMP 97.4; O2SAT 96
[2024-02-14 19:24] LABS: Urine Bacteria None Seen /hpf (None Seen)
[2024-02-14 19:39] LABS: Urine Blood TRACE /uL (Negative); Urine Clarity Clear (Clear); Urine Color Light-Yellow (Yellow); Urine Mucus FEW (None Seen); Urine Protein, UAD 1+ (Negative); Urine Specific Gravity 1.014 (1.001-1.035); Urine Urobilinogen Normal (Negative); Urine WBC 6 /hpf (0 - 5); Urine pH 5.5 (5.0-9.0)
[2024-02-14] MEDS: METOPROLOL TARTRATE 25 MG TAB PO ONE (21:22)
[2024-02-14] MEDS: cloNIDine HCL 0.1 MG TAB PO SCH (22:00)
[2024-02-14] MEDS: ACCU-CHEK COMFORT CURVE STRIP VI SCH (22:35)
[2024-02-14] MEDS: InsuLIN REG 1unit/0.01ml Soln (100units/ml) SC SCH (22:35)
[2024-02-14] MEDS: MECLIZINE HCL 25 MG TAB PO SCH (22:44)
[2024-02-14] MEDS: METOPROLOL TARTRATE 25 MG TAB PO SCH (22:44)
[2024-02-15] VITALS (10 sets, daily range): BP systolic 113–133; BP diastolic 56–92; PULSE 48–54; RESP 16–17; TEMP 98.1–98.6; O2SAT 93–99
[2024-02-15] MEDS: ACETAMINOPHEN 325 MG TAB PO PRN (03:02)
[2024-02-15 05:26] LABS: Alanine Aminotransferase 20 U/L (7-40); Albumin 3.9 g/dL (3.2-4.8); Alkaline Phosphatase 105 U/L (46-116); Anion Gap 6 (5-15); Aspartate Aminotransferase 25 U/L (13-40); Bilirubin, Total 0.5 mg/dL (0.2-1.0); Blood Urea Nitrogen 15 mg/dL (9-23); Calcium 9.6 mg/dL (8.7-10.4); Carbon Dioxide 22 mmol/L (20-30); Chloride 107 mmol/L (98-107); Glucose 128 mg/dL (74-106); Potassium 4.3 mmol/L (3.5-5.1); Sodium 135 mmol/L (136-145); Total Protein 7.7 g/dL (5.7-8.2)
[2024-02-15 06:21] LABS: Basophils # (auto) 0 10 ^3/uL (0-0.2); Basophils % (auto) 0.6 % (0.0-2.0); Eosinophils # (auto) 0.3 10 ^3/uL (0-0.8); Eosinophils % (auto) 4.9 % (0.0-7.0); Hematocrit 39.6 % (36.0-46.0); Hemoglobin 13.6 g/dL (12.2-16.2); Lymphocytes # (auto) 1.7 10 ^3/uL (0.4-5.4); Lymphocytes % (auto) 27.9 % (10.0-50.0); Mean Corpuscular Hemoglobin 30.8 pg (28.0-32.0); Mean Corpuscular Hgb Conc. 34.3 g/dL (32.0-36.0); Mean Corpuscular Volume 89.7 fL (80.0-100.0); Monocytes # (auto) 0.6 10 ^3/uL (0-1.3); Monocytes % (auto) 9.9 % (0.0-12.0); Neutrophils # (auto) 3.4 10 ^3/uL (1.6-8.6); Neutrophils % (auto) 56.7 % (37.0-80.0); Nucleated Red Blood Cells % 0.2 %; Red Blood Cells 4.42 10^6/uL (4.0-5.20); Red Cell Distribution Width 13.6 % (11.8-14.3)
[2024-02-15] MEDS: ENOXAPARIN SOD 40 MG/0.4 ML SYRINGE SC SCH (10:09)
[2024-02-15] MEDS: PANTOPRAZOLE 40 MG TAB PO SCH (10:10)
[2024-02-16] VITALS (11 sets, daily range): BP systolic 128–161; BP diastolic 69–82; PULSE 47–69; RESP 15–19; TEMP 97.6–97.9; O2SAT 93–98
[2024-02-16] MEDS: GABAPENTIN 100 MG CAP PO ONE (00:38)
[2024-02-16] MEDS: HYDROcodone-ACET 5/325MG TAB PO PRN ×2 (04:51→21:06)
[2024-02-16 09:34] LABS: Basophils # (auto) 0 10 ^3/uL (0-0.2); Basophils % (auto) 0.7 % (0.0-2.0); Eosinophils # (auto) 0.3 10 ^3/uL (0-0.8); Eosinophils % (auto) 6.3 % (0.0-7.0); Hematocrit 36.6 % (36.0-46.0); Hemoglobin 12.7 g/dL (12.2-16.2); Lymphocytes # (auto) 1.5 10 ^3/uL (0.4-5.4); Lymphocytes % (auto) 32.6 % (10.0-50.0); Mean Corpuscular Hemoglobin 30.3 pg (28.0-32.0); Mean Corpuscular Hgb Conc. 34.7 g/dL (32.0-36.0); Mean Corpuscular Volume 87.5 fL (80.0-100.0); Monocytes # (auto) 0.4 10 ^3/uL (0-1.3); Monocytes % (auto) 9.6 % (0.0-12.0); Neutrophils # (auto) 2.3 10 ^3/uL (1.6-8.6); Neutrophils % (auto) 50.8 % (37.0-80.0); Red Blood Cells 4.18 10^6/uL (4.0-5.20); Red Cell Distribution Width 13.1 % (11.8-14.3); White Blood Cell 4.4 10^3/uL (4.4-10.8)
[2024-02-16 10:00] LABS: Anion Gap 7 (5-15); Carbon Dioxide 25 mmol/L (20-30); Chloride 106 mmol/L (98-107); Potassium 4.2 mmol/L (3.5-5.1); Sodium 138 mmol/L (136-145)
[2024-02-16 10:01] LABS: Calcium 9.2 mg/dL (8.7-10.4)
[2024-02-16 10:06] LABS: BUN/Creatinine Ratio 16.9 (10.0-20.0); Glucose 156 mg/dL (74-106)
[2024-02-16 10:09] LABS: Blood Urea Nitrogen 27 mg/dL (9-23)
[2024-02-16] MEDS: GABAPENTIN 100 MG CAP PO SCH (11:10)
[2024-02-16] MEDS: hydrALAZINE HCL 25 MG TAB PO SCH ×2 (11:11→15:21)
[2024-02-16] MEDS: ATORVASTATIN 20 MG TAB PO ONE (11:12)
[2024-02-16] MEDS: ASPirin 81 mg TAB PO ONE (11:12)
[2024-02-17] VITALS (10 sets, daily range): BP systolic 110–149; BP diastolic 59–83; PULSE 49–95; RESP 16–22; TEMP 97–98.1; O2SAT 92–98
[2024-02-17] MEDS: MORPHINE SULFATE INJ 2 MG/ml SYRG IV PRN (05:16)
[2024-02-17 06:22] LABS: Anion Gap 6 (5-15); Carbon Dioxide 25 mmol/L (20-30); Chloride 106 mmol/L (98-107); Potassium 4.4 mmol/L (3.5-5.1); Sodium 137 mmol/L (136-145)
[2024-02-17 06:23] LABS: Calcium 9.1 mg/dL (8.7-10.4)
[2024-02-17 06:28] LABS: BUN/Creatinine Ratio 18.9 (10.0-20.0); Blood Urea Nitrogen 32 mg/dL (9-23); Glucose 121 mg/dL (74-106)
[2024-02-17] MEDS ORDERED: SODIUM CHLORIDE 0.9% 1,000 ML IV SCH (08:00)
[2024-02-17] MEDS: ASPirin 81 mg TAB PO SCH (09:14)
[2024-02-17] MEDS: SODIUM CHLORIDE 0.9% 1,000 ML IV SCH (09:17)
[2024-02-17 15:08] LABS: Protein, Urine 18.6 mg/dL (0.0-11.9)
[2024-02-17 15:11] LABS: Creatinine, Urine 56.64 mg/dL (30.0-125.0)
[2024-02-17] MEDS: ONDANSETRON HCL 4 MG/2 ML VIAL IV PRN (21:50)
[2024-02-17] MEDS: ATORVASTATIN 20 MG TAB PO SCH (21:51)
[2024-02-18] VITALS (15 sets, daily range): BP systolic 105–149; BP diastolic 62–69; PULSE 53–77; RESP 16–18; TEMP 97.8–98.3; O2SAT 91–100
[2024-02-18 05:47] LABS: Basophils # (auto) 0 10 ^3/uL (0-0.2); Basophils % (auto) 0.7 % (0.0-2.0); Eosinophils # (auto) 0.3 10 ^3/uL (0-0.8); Eosinophils % (auto) 6.8 % (0.0-7.0); Hematocrit 33.8 % (36.0-46.0); Lymphocytes # (auto) 1.4 10 ^3/uL (0.4-5.4); Mean Corpuscular Hemoglobin 31.4 pg (28.0-32.0); Mean Corpuscular Hgb Conc. 35.5 g/dL (32.0-36.0); Mean Corpuscular Volume 88.4 fL (80.0-100.0); Monocytes # (auto) 0.6 10 ^3/uL (0-1.3); Monocytes % (auto) 12.4 % (0.0-12.0); Neutrophils # (auto) 2.3 10 ^3/uL (1.6-8.6); Neutrophils % (auto) 50.1 % (37.0-80.0); Nucleated Red Blood Cells % 0.1 %; Red Blood Cells 3.82 10^6/uL (4.0-5.20); Red Cell Distribution Width 13.2 % (11.8-14.3); White Blood Cell 4.6 10^3/uL (4.4-10.8)
[2024-02-18 06:02] LABS: Anion Gap 6 (5-15); Carbon Dioxide 24 mmol/L (20-30); Chloride 107 mmol/L (98-107); Potassium 4.7 mmol/L (3.5-5.1); Sodium 137 mmol/L (136-145)
[2024-02-18 06:03] LABS: Calcium 8.8 mg/dL (8.7-10.4)
[2024-02-18 06:08] LABS: BUN/Creatinine Ratio 18.2 (10.0-20.0); Blood Urea Nitrogen 32 mg/dL (9-23); Glucose 135 mg/dL (74-106)
[2024-02-18] MEDS: ALBUTEROL SULF 2.5 MG/0.5ML(0.5%) NEB SOLN NEB PRN (07:38)
[2024-02-19] VITALS (8 sets, daily range): BP systolic 142–176; BP diastolic 62–78; PULSE 59–72; RESP 16–19; TEMP 97.6–98.4; O2SAT 93–98
[2024-02-19 06:54] LABS: Hematocrit 34.8 % (36.0-46.0); Mean Corpuscular Hemoglobin 30.4 pg (28.0-32.0); Mean Corpuscular Hgb Conc. 34.5 g/dL (32.0-36.0); Mean Corpuscular Volume 88.1 fL (80.0-100.0); Red Blood Cells 3.95 10^6/uL (4.0-5.20); Red Cell Distribution Width 13.2 % (11.8-14.3); White Blood Cell 4.9 10^3/uL (4.4-10.8)
[2024-02-19 06:57] LABS: Basophils % (manual) 0 (0.0-2.0); Blast Cells 0; Metamyelocytes % 0; Myelocytes % 0; Promyelocytes % 0; Reactive Lymphocytes 0
[2024-02-19 07:16] LABS: Anion Gap 3 (5-15); Calcium 9.3 mg/dL (8.7-10.4); Carbon Dioxide 28 mmol/L (20-30); Chloride 106 mmol/L (98-107); Potassium 4.9 mmol/L (3.5-5.1); Sodium 137 mmol/L (136-145)
[2024-02-19 07:22] LABS: BUN/Creatinine Ratio 17.7 (10.0-20.0); Blood Urea Nitrogen 32 mg/dL (9-23); Glucose 92 mg/dL (74-106)
[2024-02-19 08:04] LABS: Band Neutrophils % (manual) 3; Eosinophils % (manual) 3 (0-7); Lymphocytes % (manual) 31 (10.0-50.0); Monocytes % (manual) 6 (0-12)
[2024-02-19 08:05] LABS: Platelet Estimate Adequate; RBC Morphology Normal
[2024-02-19] MEDS ORDERED: ASPI-325 PO (16:39)
[2024-02-19] MEDS ORDERED: HYDR25TA87 PO (16:39)
[2024-02-19] MEDS ORDERED: ATOR20TA50 PO (16:39)
[2024-02-19] MEDS ORDERED: MET25T PO (16:39)
[2024-02-19] MEDS ORDERED: GAB100C PO (16:39)
== END 2024-02-19 18:45 | disposition home or self-care (01) | DRG 199 ==
LOC: EDBD 16:35 → ER 16:35 → TELE 18:08 → TELE-WESTW 18:08
PROVIDERS: ADMIT Internal Medicine Geriatric Medicine; ATTEND Emergency Medicine
DX: I16.9 Hypertensive crisis, unspecified (principal); N17.9 Acute kidney failure, unspecified; E11.22 Type 2 diabetes mellitus with diabetic chronic kidney disease; E11.42 Type 2 diabetes mellitus with diabetic polyneuropathy; I12.9 Hypertensive chronic kidney disease with stage 1 through stage 4 chronic kidney disease, or unspecified chronic kidney disease; K70.30 Alcoholic cirrhosis of liver without ascites; E66.01 Morbid (severe) obesity due to excess calories; J44.9 Chronic obstructive pulmonary disease, unspecified; I25.10 Atherosclerotic heart disease of native coronary artery without angina pectoris; N18.32 Chronic kidney disease, stage 3b; Z86.73 Personal history of transient ischemic attack (TIA), and cerebral infarction without residual deficits; Z68.34 Body mass index [BMI] 34.0-34.9, adult; Z71.3 Dietary counseling and surveillance; Z90.710 Acquired absence of both cervix and uterus; Z88.1 Allergy status to other antibiotic agents; Z88.2 Allergy status to sulfonamides; Z88.8 Allergy status to other drugs, medicaments and biological substances; Z91.09 Other allergy status, other than to drugs and biological substances; Z79.899 Other long term (current) drug therapy; Z87.891 Personal history of nicotine dependence; Z90.49 Acquired absence of other specified parts of digestive tract; Z88.3 Allergy status to other anti-infective agents; Z85.528 Personal history of other malignant neoplasm of kidney; Z80.8 Family history of malignant neoplasm of other organs or systems; Z80.6 Family history of leukemia
CPT/HCPCS: 36415; 70450; 71045; 76775; 80048; 80053; 80061; 81001; 82570; 82607; 82962; 83036; 83880; 84156; 84300; 84443; 84484; 85007; 85025; 85027; 87205; 93005; 94640; 97110; 97116; 97163; 97530; 99291; G0378; J2405

== ENCOUNTER 2024-02-26 00:09 | Inpatient (IN) | payer MEDICAID ==
[~2024-02-26] VITALS: Ht 162.6 cm; Wt 79.9 kg
[2024-02-26] VITALS (8 sets, daily range): BP systolic 134–151; BP diastolic 64–73; PULSE 62–85; RESP 16–18; TEMP 97.8–98.2; O2SAT 95–98
[~2024-02-26 00:09] MED LIST changes: +ASPI-325 PO; +ATOR20TA50 PO; -CEFD300C2 PO; +GAB100C PO; +HYDR25TA87 PO; -IRBE150T49 PO; +MET25T PO
[2024-02-26] MEDS: cloNIDine HCL 0.1 MG TAB PO ONE (01:30)
[2024-02-26 01:59] LABS: Alanine Aminotransferase 18 U/L (7-40); Albumin 4.2 g/dL (3.2-4.8); Alkaline Phosphatase 93 U/L (46-116); Anion Gap 8 (5-15); Aspartate Aminotransferase 17 U/L (13-40); BUN/Creatinine Ratio 9.8 (10.0-20.0); Bilirubin, Total 0.7 mg/dL (0.2-1.0); Blood Urea Nitrogen 13 mg/dL (9-23); Calcium 9.4 mg/dL (8.7-10.4); Carbon Dioxide 26 mmol/L (20-30); Chloride 102 mmol/L (98-107); Glucose 159 mg/dL (74-106); Sodium 136 mmol/L (136-145)
[2024-02-26 02:04] LABS: Basophils # (auto) 0 10 ^3/uL (0-0.2); Basophils % (auto) 0.2 % (0.0-2.0); Eosinophils # (auto) 0 10 ^3/uL (0-0.8); Eosinophils % (auto) 0.4 % (0.0-7.0); Hematocrit 38.3 % (36.0-46.0); Hemoglobin 13.6 g/dL (12.2-16.2); Lymphocytes # (auto) 0.5 10 ^3/uL (0.4-5.4); Lymphocytes % (auto) 6.1 % (10.0-50.0); Mean Corpuscular Hemoglobin 31.3 pg (28.0-32.0); Mean Corpuscular Hgb Conc. 35.6 g/dL (32.0-36.0); Monocytes # (auto) 0.6 10 ^3/uL (0-1.3); Monocytes % (auto) 7.7 % (0.0-12.0); Neutrophils # (auto) 6.7 10 ^3/uL (1.6-8.6); Neutrophils % (auto) 85.6 % (37.0-80.0); Red Blood Cells 4.35 10^6/uL (4.0-5.20); Red Cell Distribution Width 13.3 % (11.8-14.3); White Blood Cell 7.8 10^3/uL (4.4-10.8)
[2024-02-26] MEDS: ONDANSETRON HCL 4 MG/2 ML VIAL IV ONE (03:37)
[2024-02-26] MEDS ORDERED: HYDROcodone-ACET 5/325MG TAB PO PRN (05:45)
[2024-02-26] MEDS ORDERED: DEXTROSE (50%) 50ML SYRG IV PRN (05:45)
[2024-02-26] MEDS: HYDROcodone-ACET 10/325MG TAB PO ONE (06:04)
[2024-02-26] MEDS: SODIUM CHLORIDE 0.9% 1,000 ML IV SCH (06:11)
[2024-02-26] MEDS: InsuLIN REG 1unit/0.01ml Soln (100units/ml) SC SCH (06:36)
[2024-02-26] MEDS: ACCU-CHEK COMFORT CURVE STRIP VI SCH (06:46)
[2024-02-26 07:11] LABS: Alanine Aminotransferase 18 U/L (7-40); Alkaline Phosphatase 90 U/L (46-116); Aspartate Aminotransferase 17 U/L (13-40); BUN/Creatinine Ratio 8.7 (10.0-20.0); Bilirubin, Total 0.7 mg/dL (0.2-1.0); Blood Urea Nitrogen 11 mg/dL (9-23); Calcium 9.5 mg/dL (8.7-10.4); Glucose 158 mg/dL (74-106); Potassium 4.2 mmol/L (3.5-5.1); Sodium 136 mmol/L (136-145); Total Protein 7.8 g/dL (5.7-8.2)
[2024-02-26 07:26] LABS: Carbon Dioxide 23 mmol/L (20-30)
[2024-02-26 07:27] LABS: Anion Gap 11 (5-15); Chloride 102 mmol/L (98-107)
[2024-02-26 07:40] LABS: Basophils # (auto) 0 10 ^3/uL (0-0.2); Basophils % (auto) 0.2 % (0.0-2.0); Eosinophils # (auto) 0 10 ^3/uL (0-0.8); Eosinophils % (auto) 0.1 % (0.0-7.0); Hematocrit 39.6 % (36.0-46.0); Hemoglobin 13.8 g/dL (12.2-16.2); Lymphocytes # (auto) 0.6 10 ^3/uL (0.4-5.4); Lymphocytes % (auto) 9.3 % (10.0-50.0); Mean Corpuscular Hemoglobin 31.6 pg (28.0-32.0); Mean Corpuscular Hgb Conc. 34.8 g/dL (32.0-36.0); Mean Corpuscular Volume 90.9 fL (80.0-100.0); Monocytes # (auto) 0.7 10 ^3/uL (0-1.3); Neutrophils # (auto) 5.3 10 ^3/uL (1.6-8.6); Neutrophils % (auto) 80.4 % (37.0-80.0); Nucleated Red Blood Cells % 0.1 %; Red Blood Cells 4.36 10^6/uL (4.0-5.20); Red Cell Distribution Width 13.1 % (11.8-14.3); White Blood Cell 6.5 10^3/uL (4.4-10.8)
[2024-02-26] MEDS: METOPROLOL TARTRATE 25 MG TAB PO SCH (11:33)
[2024-02-26] MEDS: ASPirin 81 mg TAB PO SCH (11:33)
[2024-02-26] MEDS: MORPHINE SULFATE INJ 2 MG/ml SYRG IV PRN (12:11)
[2024-02-26 19:05] LABS: COVID19 ANTIGEN SOFIA FIA POSITIVE (NEGATIVE)
[2024-02-26] MEDS: ATORVASTATIN 20 MG TAB PO SCH (22:43)
[2024-02-27] VITALS (7 sets, daily range): BP systolic 128–149; BP diastolic 64–77; PULSE 61–81; RESP 17–20; TEMP 97.5–99.6; O2SAT 93–98
[2024-02-27 05:30] LABS: Basophils # (auto) 0 10 ^3/uL (0-0.2); Basophils % (auto) 0.4 % (0.0-2.0); Eosinophils # (auto) 0.1 10 ^3/uL (0-0.8); Eosinophils % (auto) 1.3 % (0.0-7.0); Hematocrit 34.7 % (36.0-46.0); Hemoglobin 12.3 g/dL (12.2-16.2); Lymphocytes % (auto) 18.9 % (10.0-50.0); Mean Corpuscular Hemoglobin 31.1 pg (28.0-32.0); Mean Corpuscular Hgb Conc. 35.4 g/dL (32.0-36.0); Mean Corpuscular Volume 87.8 fL (80.0-100.0); Monocytes # (auto) 0.9 10 ^3/uL (0-1.3); Monocytes % (auto) 17.1 % (0.0-12.0); Neutrophils # (auto) 3.3 10 ^3/uL (1.6-8.6); Neutrophils % (auto) 62.3 % (37.0-80.0); Nucleated Red Blood Cells % 0.1 %; Red Blood Cells 3.95 10^6/uL (4.0-5.20); Red Cell Distribution Width 13.3 % (11.8-14.3); White Blood Cell 5.2 10^3/uL (4.4-10.8)
[2024-02-27 05:48] LABS: Alanine Aminotransferase 13 U/L (7-40); Albumin 3.5 g/dL (3.2-4.8); Alkaline Phosphatase 72 U/L (46-116); Anion Gap 7 (5-15); Aspartate Aminotransferase 12 U/L (13-40); BUN/Creatinine Ratio 13.1 (10.0-20.0); Blood Urea Nitrogen 17 mg/dL (9-23); Calcium 8.9 mg/dL (8.7-10.4); Carbon Dioxide 27 mmol/L (20-30); Chloride 102 mmol/L (98-107); Glucose 103 mg/dL (74-106); Potassium 4.5 mmol/L (3.5-5.1); Sodium 136 mmol/L (136-145)
[2024-02-27 05:49] LABS: Bilirubin, Total 0.6 mg/dL (0.2-1.0); Total Protein 6.8 g/dL (5.7-8.2)
[2024-02-27] MEDS: HYDROcodone-ACET 5/325MG TAB PO PRN (11:51)
[2024-02-27] MEDS: ZINC SULFATE 220mg CAP or TAB PO ONE (13:40)
[2024-02-27] MEDS: ASCORBIC ACID 500 MG TAB PO ONE (13:40)
[2024-02-27] MEDS ORDERED: ALBUTEROL SULF HFA 90MCG INH 200DOSE IN SCH (14:00)
[2024-02-27] MEDS ORDERED: REMDESIVIR PER PHARMACY 0 ML IV SCH (14:45)
[2024-02-27] MEDS: methylPREDNISolone SOD SUCC 125 MG/2 ML VL IV SCH (16:24)
[2024-02-27] MEDS: REMDESIVIR 200 MG in NS 210ml LOADING DOSE ADULT IV ONE (16:25)
[2024-02-27] MEDS: AZITHROMYCIN 500MG/ 250ML 250 ML IV ONE (19:32)
[2024-02-27] MEDS: ASCORBIC ACID 500 MG TAB PO SCH (21:38)
[2024-02-28] VITALS (10 sets, daily range): BP systolic 122–159; BP diastolic 62–78; PULSE 57–73; RESP 16–20; TEMP 97.7–98.3; O2SAT 94–97
[2024-02-28] MEDS: hydrALAZINE HCL 20 MG/ML VL IV PRN (06:22)
[2024-02-28] MEDS: AZITHROMYCIN 500MG/ 250ML 250 ML IV SCH (09:24)
[2024-02-28] MEDS: ONDANSETRON HCL 4 MG/2 ML VIAL IV PRN (09:24)
[2024-02-28] MEDS: ZINC SULFATE 220mg CAP or TAB PO SCH (09:29)
[2024-02-28 10:05] LABS: Basophils # (auto) 0 10 ^3/uL (0-0.2); Eosinophils # (auto) 0 10 ^3/uL (0-0.8); Hematocrit 35.6 % (36.0-46.0); Hemoglobin 12.5 g/dL (12.2-16.2); Lymphocytes # (auto) 0.4 10 ^3/uL (0.4-5.4); Lymphocytes % (auto) 7.7 % (10.0-50.0); Mean Corpuscular Hemoglobin 30.6 pg (28.0-32.0); Mean Corpuscular Hgb Conc. 35.3 g/dL (32.0-36.0); Mean Corpuscular Volume 86.8 fL (80.0-100.0); Monocytes # (auto) 0.1 10 ^3/uL (0-1.3); Monocytes % (auto) 1.7 % (0.0-12.0); Neutrophils # (auto) 4.9 10 ^3/uL (1.6-8.6); Neutrophils % (auto) 90.6 % (37.0-80.0); Nucleated Red Blood Cells % 0.1 %; White Blood Cell 5.4 10^3/uL (4.4-10.8)
[2024-02-28 10:20] LABS: Chloride 106 mmol/L (98-107); Potassium 4.3 mmol/L (3.5-5.1); Sodium 137 mmol/L (136-145)
[2024-02-28 10:21] LABS: Anion Gap 6 (5-15); Calcium 9.4 mg/dL (8.7-10.4); Carbon Dioxide 25 mmol/L (20-30)
[2024-02-28 10:26] LABS: BUN/Creatinine Ratio 17.6 (10.0-20.0); Blood Urea Nitrogen 21 mg/dL (9-23); Glucose 174 mg/dL (74-106)
[2024-02-28] MEDS: SUCRALFATE 1 GM/10 ML ORAL SUSP PO SCH (11:30)
[2024-02-28] MEDS ORDERED: SUCRALFATE 1 GM/10 ML ORAL SUSP GT SCH (11:30)
[2024-02-28] MEDS: REMDESIVIR 100mg 100 MG in SODIUM CHL 0.9% 230 ML IV SCH (15:43)
[2024-02-28] MEDS: PANTOPRAZOLE 40 MG TAB PO SCH (16:57)
[2024-02-28] MEDS: DOCUSATE SOD 100 MG CAP PO PRN (21:37)
[2024-02-29] VITALS (9 sets, daily range): BP systolic 117–160; BP diastolic 62–76; PULSE 51–88; RESP 16–20; TEMP 97.5–97.8; O2SAT 94–99
[2024-02-29 06:57] LABS: Alanine Aminotransferase 14 U/L (7-40); Albumin 3.5 g/dL (3.2-4.8); Alkaline Phosphatase 74 U/L (46-116); Anion Gap 7 (5-15); Aspartate Aminotransferase 11 U/L (13-40); BUN/Creatinine Ratio 19.8 (10.0-20.0); Blood Urea Nitrogen 25 mg/dL (9-23); Calcium 9.4 mg/dL (8.7-10.4); Carbon Dioxide 24 mmol/L (20-30); Chloride 106 mmol/L (98-107); Glucose 170 mg/dL (74-106); Potassium 4.4 mmol/L (3.5-5.1); Sodium 137 mmol/L (136-145)
[2024-02-29 06:58] LABS: Bilirubin, Total 0.3 mg/dL (0.2-1.0); Total Protein 6.8 g/dL (5.7-8.2)
[2024-02-29] MEDS: IOHEXOL 350 MG/ML 100ML IJ ONE (07:34)
[2024-02-29] MEDS: DexAMETHasone SOD PHOS 10MG/1ML VIAL INJ IV SCH (11:19)
[2024-02-29] MEDS: MORPHINE SULFATE INJ 2 MG/ml SYRG IV ONE (15:37)
[2024-02-29] MEDS ORDERED: DICYCLOMINE HCL 10 MG CAP PO SCH (18:00)
[2024-03-01] VITALS (9 sets, daily range): BP systolic 133–176; BP diastolic 70–86; PULSE 52–71; RESP 16–20; TEMP 97.5–98.9; O2SAT 91–97
[2024-03-01 06:22] LABS: Alanine Aminotransferase 15 U/L (7-40); Albumin 3.3 g/dL (3.2-4.8); Alkaline Phosphatase 72 U/L (46-116); Anion Gap 7 (5-15); Aspartate Aminotransferase 14 U/L (13-40); Blood Urea Nitrogen 17 mg/dL (9-23); Calcium 9.1 mg/dL (8.7-10.4); Carbon Dioxide 24 mmol/L (20-30); Chloride 106 mmol/L (98-107); Glucose 124 mg/dL (74-106); Potassium 4.2 mmol/L (3.5-5.1); Sodium 137 mmol/L (136-145)
[2024-03-01 06:23] LABS: Bilirubin, Total 0.3 mg/dL (0.2-1.0); Total Protein 6.5 g/dL (5.7-8.2)
[2024-03-01] MEDS: METOCLOPRAMIDE HCL 5MG/ml INJ 2ml VIAL IV SCH (12:34)
[2024-03-01] MEDS: traMADol HCL 50 MG TAB PO ONE (14:09)
[2024-03-01] MEDS: ACETAMINOPHEN 325 MG TAB PO PRN (20:25)
[2024-03-02] VITALS (7 sets, daily range): BP systolic 135–165; BP diastolic 73–87; PULSE 59–88; RESP 16–20; TEMP 97.4–98; O2SAT 93–98
[2024-03-02 07:19] LABS: Alanine Aminotransferase 16 U/L (7-40); Albumin 3.8 g/dL (3.2-4.8); Alkaline Phosphatase 83 U/L (46-116); Anion Gap 7 (5-15); Aspartate Aminotransferase 24 U/L (13-40); Blood Urea Nitrogen 21 mg/dL (9-23); Calcium 9.6 mg/dL (8.7-10.4); Carbon Dioxide 29 mmol/L (20-30); Chloride 103 mmol/L (98-107); Glucose 95 mg/dL (74-106); Potassium 4.3 mmol/L (3.5-5.1); Sodium 139 mmol/L (136-145)
[2024-03-02 07:20] LABS: Bilirubin, Total 0.4 mg/dL (0.2-1.0); Total Protein 7.2 g/dL (5.7-8.2)
[2024-03-02] MEDS: METOCLOPRAMIDE HCL 5MG/ml INJ 2ml VIAL IV ONE (14:16)
[2024-03-02] MEDS: LACTULOSE 20Gm/30ML SOLN PO ONE (14:34)
== END 2024-03-02 18:05 | disposition home or self-care (01) | DRG 137 ==
LOC: EDBD 00:09 → ER 00:09 → TELE 05:50 → TELE-WESTW 09:02 → UNDODISIN 03-02 18:05
PROVIDERS: ADMIT Internal Medicine; ATTEND Nurse Practitioner Acute Care
PROC: XW033E5 Introduction of Remdesivir Anti-infective into Peripheral Vein, Percutaneous Approach, New Technology Group 5 (ICD-10-PCS; principal; 2024-02-27)
DX: U07.1 COVID-19 (principal); J12.82 Pneumonia due to coronavirus disease 2019; I24.9 Acute ischemic heart disease, unspecified; N17.9 Acute kidney failure, unspecified; K92.0 Hematemesis; I16.0 Hypertensive urgency; E11.9 Type 2 diabetes mellitus without complications; E66.9 Obesity, unspecified; I25.10 Atherosclerotic heart disease of native coronary artery without angina pectoris; Z88.1 Allergy status to other antibiotic agents; Z88.2 Allergy status to sulfonamides; Z88.8 Allergy status to other drugs, medicaments and biological substances; Z79.899 Other long term (current) drug therapy; Z87.891 Personal history of nicotine dependence; Z90.710 Acquired absence of both cervix and uterus; Z88.3 Allergy status to other anti-infective agents; Z80.8 Family history of malignant neoplasm of other organs or systems; Z80.6 Family history of leukemia; Z86.73 Personal history of transient ischemic attack (TIA), and cerebral infarction without residual deficits; Z68.30 Body mass index [BMI] 30.0-30.9, adult
CPT/HCPCS: 36415; 71045; 71275; 74176; 80048; 80053; 82962; 83880; 84484; 85025; 85379; 87081; 87426; 93005; 96374; G0378; J1100; J1815; J2405

== ENCOUNTER 2024-05-16 14:07 | Inpatient (IN) | payer MEDICAID ==
[~2024-05-16] VITALS: Ht 162.6 cm; Wt 82.7 kg
[2024-05-16] MEDS: SODIUM CHLORIDE 0.9% 1,000 ML IV ONE (15:45)
[2024-05-16 16:18] LABS: Urine Bacteria FEW /hpf (None Seen); Urine Blood 1+ /uL (Negative); Urine Clarity Turbid (Clear); Urine Color Colorless (Yellow); Urine Protein, UAD 1+ (Negative); Urine Specific Gravity 1.018 (1.001-1.035); Urine Urobilinogen Normal (Negative); Urine WBC 91 /hpf (0 - 5)
[2024-05-16] MEDS: ONDANSETRON HCL 4 MG/2 ML VIAL IV ONE (16:39)
[2024-05-16] MEDS: MORPHINE SULFATE 4 MG/ML SYR/VIAL IV ONE (16:40)
[2024-05-16 17:13] LABS: Basophils # (auto) 0 10 ^3/uL (0-0.2); Basophils % (auto) 0.4 % (0.0-2.0); Eosinophils # (auto) 0.2 10 ^3/uL (0-0.8); Hematocrit 39.5 % (36.0-46.0); Hemoglobin 13.5 g/dL (12.2-16.2); Lymphocytes # (auto) 1.4 10 ^3/uL (0.4-5.4); Lymphocytes % (auto) 24.3 % (10.0-50.0); Mean Corpuscular Hemoglobin 30.3 pg (28.0-32.0); Mean Corpuscular Hgb Conc. 34.3 g/dL (32.0-36.0); Mean Corpuscular Volume 88.5 fL (80.0-100.0); Monocytes # (auto) 0.4 10 ^3/uL (0-1.3); Neutrophils # (auto) 3.8 10 ^3/uL (1.6-8.6); Neutrophils % (auto) 65.3 % (37.0-80.0); Nucleated Red Blood Cells % 0.2 %; Platelet Count (auto) 177 10^3/uL (140-450); Red Blood Cells 4.46 10^6/uL (4.0-5.20); Red Cell Distribution Width 13.3 % (11.8-14.3); White Blood Cell 5.9 10^3/uL (4.4-10.8)
[2024-05-16 17:32] LABS: Alanine Aminotransferase 15 U/L (7-40); Albumin 4.1 g/dL (3.2-4.8); Alkaline Phosphatase 107 U/L (46-116); Anion Gap 6 (5-15); Aspartate Aminotransferase 20 U/L (13-40); BUN/Creatinine Ratio 11.5 (10.0-20.0); Bilirubin, Total 0.8 mg/dL (0.2-1.0); Blood Urea Nitrogen 15 mg/dL (9-23); Calcium 9.8 mg/dL (8.7-10.4); Carbon Dioxide 27 mmol/L (20-31); Chloride 106 mmol/L (98-107); Glucose 95 mg/dL (74-106); Lipase 26 U/L (12-53); Sodium 139 mmol/L (136-145); Total Protein 7.4 g/dL (5.7-8.2)
[2024-05-16] MEDS: AZTREONAM 1GM INJ 2 GM in D5W 5% 50 ML IV ONE (19:45)
[2024-05-16 19:57] VITALS: PULSE 70; RESP 15; O2SAT 90
[2024-05-16 21:47] VITALS: BP 181/82; PULSE 72; RESP 20; TEMP 97.7; O2SAT 94
[2024-05-16 21:50] VITALS: BP 181/82; PULSE 72; RESP 20; TEMP 97.7; O2SAT 94
[2024-05-16] MEDS ORDERED: PANT40T PO (21:57)
[2024-05-16] MEDS ORDERED: CETI-120 PO (21:57)
[2024-05-16] MEDS ORDERED: LOSA-535 PO (21:57)
[2024-05-16] MEDS ORDERED: ONDA-188 PO (21:57)
[2024-05-16] MEDS ORDERED: DIPH25TA31 PO (21:57)
[2024-05-16] MEDS ORDERED: ALBU108A5 PO (21:57)
[2024-05-16] MEDS: MORPHINE SULFATE INJ 2 MG/ml SYRG IV PRN (22:18)
[2024-05-16] MEDS: METOPROLOL TARTRATE 25 MG TAB PO ONE (23:01)
[2024-05-16] MEDS: hydrALAZINE HCL 25 MG TAB PO ONE (23:02)
[2024-05-17] VITALS (9 sets, daily range): BP systolic 127–170; BP diastolic 60–75; PULSE 54–61; RESP 16–22; TEMP 97.7–98.9; O2SAT 94–97
[2024-05-17 06:15] LABS: Basophils # (auto) 0 10 ^3/uL (0-0.2); Basophils % (auto) 0.6 % (0.0-2.0); Chloride 109 mmol/L (98-107); Eosinophils # (auto) 0.3 10 ^3/uL (0-0.8); Eosinophils % (auto) 5.3 % (0.0-7.0); Hematocrit 38.8 % (36.0-46.0); Hemoglobin 13.6 g/dL (12.2-16.2); Lymphocytes # (auto) 1.5 10 ^3/uL (0.4-5.4); Lymphocytes % (auto) 27.3 % (10.0-50.0); Mean Corpuscular Hemoglobin 31.2 pg (28.0-32.0); Mean Corpuscular Volume 88.9 fL (80.0-100.0); Monocytes # (auto) 0.5 10 ^3/uL (0-1.3); Monocytes % (auto) 9.3 % (0.0-12.0); Neutrophils # (auto) 3.1 10 ^3/uL (1.6-8.6); Neutrophils % (auto) 57.5 % (37.0-80.0); Nucleated Red Blood Cells % 0.2 %; Platelet Count (auto) 185 10^3/uL (140-450); Red Blood Cells 4.37 10^6/uL (4.0-5.20); Sodium 139 mmol/L (136-145); White Blood Cell 5.4 10^3/uL (4.4-10.8)
[2024-05-17 06:16] LABS: Anion Gap 6 (5-15); Carbon Dioxide 24 mmol/L (20-31)
[2024-05-17 06:17] LABS: Calcium 9.5 mg/dL (8.7-10.4)
[2024-05-17 06:21] LABS: Glucose 95 mg/dL (74-106)
[2024-05-17 06:22] LABS: Blood Urea Nitrogen 13 mg/dL (9-23)
[2024-05-17 08:34] LABS: Albumin 3.6 g/dL (3.2-4.8); Bilirubin, Direct 0.2 mg/dL (<0.3); Bilirubin, Total 0.6 mg/dL (0.2-1.0)
[2024-05-17] MEDS: FLUTICASONE PROP NASAL SPR 0.05 % (50MCG) 16GM SCH (10:00)
[2024-05-17] MEDS ORDERED: PATIENTS OWN MEDICATION (Losartan Potassium 1 TAB) PO SCH (10:00)
[2024-05-17] MEDS ORDERED: METOCLOPRAMIDE HCL 5MG/ml INJ 2ml VIAL IV PRN (10:15)
[2024-05-17] MEDS: ASPirin-EC 81 mg tab PO SCH (10:35)
[2024-05-17] MEDS: METOPROLOL TARTRATE 25 MG TAB PO SCH (10:36)
[2024-05-17] MEDS: PANTOPRAZOLE 40 MG TAB PO SCH (10:37)
[2024-05-17] MEDS: GABAPENTIN 100 MG CAP PO SCH (10:37)
[2024-05-17] MEDS: AZTREONAM 1 GM INJ VIAL ONE (10:39)
[2024-05-17] MEDS: AZTREONAM 1GM INJ 1 GM in D5W 5% 50 ML IV SCH (10:58)
[2024-05-17] MEDS: ERGOCALCIFEROL 50,000 UNIT(1.25MG) CAP PO SCH (15:01)
[2024-05-17] MEDS: hydrALAZINE HCL 25 MG TAB PO SCH (15:02)
[2024-05-17] MEDS: LOSARTAN POTASSIUM 50 MG TAB PO SCH (22:00)
[2024-05-17] MEDS: ATORVASTATIN 20 MG TAB PO SCH (22:34)
[2024-05-18 01:00] VITALS: BP 146/74; PULSE 54; RESP 18; TEMP 97.6; O2SAT 96
[2024-05-18 05:00] VITALS: BP 120/58; PULSE 60; RESP 20; TEMP 97.9; O2SAT 94
[2024-05-18] MEDS: HYDROcodone-ACET 5/325MG TAB PO PRN (05:45)
[2024-05-18 06:57] LABS: Chloride 107 mmol/L (98-107); Potassium 3.8 mmol/L (3.5-5.1); Sodium 139 mmol/L (136-145)
[2024-05-18 06:58] LABS: Anion Gap 5 (5-15); Calcium 9.6 mg/dL (8.7-10.4); Carbon Dioxide 27 mmol/L (20-31)
[2024-05-18 07:03] LABS: BUN/Creatinine Ratio 12.2 (10.0-20.0); Blood Urea Nitrogen 18 mg/dL (9-23); Glucose 140 mg/dL (74-106)
[2024-05-18] MEDS ORDERED: ERGO1CAP23 PO (07:32)
[2024-05-18 08:10] VITALS: BP 137/64; PULSE 57; RESP 18; TEMP 97.6; O2SAT 95
[2024-05-18] MEDS ORDERED: LOSARTAN POTASSIUM 50 MG TAB PO SCH (10:00)
[2024-05-18] MEDS ORDERED: FOSF3POW PO (11:20)
[2024-05-18 11:51] VITALS: BP 162/66; PULSE 61; RESP 20; TEMP 98.3; O2SAT 98
[2024-05-18 13:08] VITALS: BP 162/66; PULSE 61; RESP 20; TEMP 98.3; O2SAT 98
== END 2024-05-18 16:07 | disposition home or self-care (01) | DRG 463 ==
LOC: EDBD 14:07 → ER 14:10 → OVERFLOW 19:02 → CENTRAL 21:44
PROVIDERS: ADMIT Internal Medicine; ATTEND Internal Medicine
DX: N30.00 Acute cystitis without hematuria (principal); E11.22 Type 2 diabetes mellitus with diabetic chronic kidney disease; E55.9 Vitamin D deficiency, unspecified; K21.9 Gastro-esophageal reflux disease without esophagitis; M79.18 Myalgia, other site; J44.9 Chronic obstructive pulmonary disease, unspecified; N18.30 Chronic kidney disease, stage 3 unspecified; I12.9 Hypertensive chronic kidney disease with stage 1 through stage 4 chronic kidney disease, or unspecified chronic kidney disease; Z88.1 Allergy status to other antibiotic agents; Z88.3 Allergy status to other anti-infective agents; Z88.8 Allergy status to other drugs, medicaments and biological substances; Z86.73 Personal history of transient ischemic attack (TIA), and cerebral infarction without residual deficits; Z90.710 Acquired absence of both cervix and uterus; Z87.891 Personal history of nicotine dependence; Z90.49 Acquired absence of other specified parts of digestive tract; Z80.8 Family history of malignant neoplasm of other organs or systems; Z80.41 Family history of malignant neoplasm of ovary; Z80.3 Family history of malignant neoplasm of breast; Z80.6 Family history of leukemia; Z80.51 Family history of malignant neoplasm of kidney; I25.2 Old myocardial infarction
CPT/HCPCS: 36415; 71045; 73120; 73502; 73562; 80048; 80053; 80076; 81001; 82306; 82607; 83036; 83690; 85025; 87086; 97163; G0378; J2405; J7060

== ENCOUNTER 2024-05-23 15:45 | Inpatient (IN) | payer MEDICAID ==
[~2024-05-23] VITALS: Ht 162.6 cm; Wt 84.8 kg
[~2024-05-23 15:45] MED LIST changes: +ALBU108A5 INH; +CETI-120 PO; +DIPH25TA31 PO; -DIPH50TA9 PO; +ERGO1CAP23 PO; +FOSF3POW PO; -HYDR50TA47 PO; +LOSA-535 PO; +LOSA100T33 PO; +ONDA-188 PO
[2024-05-23 16:31] LABS: Basophils # (auto) 0 10 ^3/uL (0-0.2); Basophils % (auto) 0.5 % (0.0-2.0); Eosinophils # (auto) 0.2 10 ^3/uL (0-0.8); Eosinophils % (auto) 3.8 % (0.0-7.0); Hematocrit 41.1 % (36.0-46.0); Hemoglobin 14.3 g/dL (12.2-16.2); Lymphocytes # (auto) 1.3 10 ^3/uL (0.4-5.4); Lymphocytes % (auto) 23.1 % (10.0-50.0); Mean Corpuscular Hemoglobin 30.7 pg (28.0-32.0); Mean Corpuscular Hgb Conc. 34.8 g/dL (32.0-36.0); Mean Corpuscular Volume 88.4 fL (80.0-100.0); Monocytes # (auto) 0.4 10 ^3/uL (0-1.3); Monocytes % (auto) 7.1 % (0.0-12.0); Neutrophils # (auto) 3.7 10 ^3/uL (1.6-8.6); Neutrophils % (auto) 65.5 % (37.0-80.0); Nucleated Red Blood Cells % 0.3 %; Platelet Count (auto) 181 10^3/uL (140-450); Red Blood Cells 4.65 10^6/uL (4.0-5.20); Red Cell Distribution Width 13.1 % (11.8-14.3); White Blood Cell 5.7 10^3/uL (4.4-10.8)
[2024-05-23 16:42] LABS: Chloride 105 mmol/L (98-107); Sodium 139 mmol/L (136-145)
[2024-05-23 16:43] LABS: Anion Gap 5 (5-15); Calcium 10.1 mg/dL (8.7-10.4); Carbon Dioxide 29 mmol/L (20-31)
[2024-05-23 16:48] LABS: BUN/Creatinine Ratio 17.6 (10.0-20.0); Blood Urea Nitrogen 24 mg/dL (9-23); Glucose 93 mg/dL (74-106)
[2024-05-23 17:23] LABS: Urine Bacteria None Seen /hpf (None Seen)
[2024-05-23 17:35] LABS: Urine Blood TRACE /uL (Negative); Urine Clarity Clear (Clear); Urine Color Yellow (Yellow); Urine Hyaline Cast FEW /lpf (0 - 2); Urine Protein, UAD 2+ (Negative); Urine Specific Gravity 1.023 (1.001-1.035); Urine Urobilinogen Normal (Negative); Urine WBC 3 /hpf (0 - 5)
[2024-05-23] MEDS: cloNIDine HCL 0.1 MG TAB PO ONE (19:01)
[2024-05-23] MEDS: HYDROcodone-ACET 10/325MG TAB PO ONE (19:02)
[2024-05-23 19:05] VITALS: PULSE 65; RESP 16; O2SAT 98
[2024-05-23] MEDS ORDERED: NITROGLYCERIN 0.4 MG SL TAB SL PRN (21:30)
[2024-05-23] MEDS ORDERED: MORPHINE SULFATE INJ 2 MG/ml SYRG IV PRN (21:30)
[2024-05-23] MEDS ORDERED: DOCUSATE SOD 100 MG CAP PO PRN (21:30)
[2024-05-23] MEDS: ALBUTEROL SULF 2.5 MG/0.5ML(0.5%) NEB SOLN ONE (22:08)
[2024-05-23 22:10] VITALS: BP 140/68; PULSE 60; RESP 20; TEMP 98.6; O2SAT 95
[2024-05-23] MEDS: ERGOCALCIFEROL 50,000 UNIT(1.25MG) CAP PO SCH (22:49)
[2024-05-23] MEDS: GABAPENTIN 100 MG CAP PO SCH (22:50)
[2024-05-23] MEDS: hydrALAZINE HCL 25 MG TAB PO SCH (22:50)
[2024-05-23] MEDS: ATORVASTATIN 20 MG TAB PO SCH (22:50)
[2024-05-23] MEDS: ENOXAPARIN SOD 40 MG/0.4 ML SYRINGE SC SCH (22:51)
[2024-05-23] MEDS: LACTULOSE 20Gm/30ML SOLN PO ONE (22:51)
[2024-05-23] MEDS: METOPROLOL TARTRATE 25 MG TAB PO SCH (22:51)
[2024-05-23] MEDS: SODIUM CHLOR 0.9% PF (SALINE LOCK) 10ML VIAL/SYR IV SCH (22:52)
[2024-05-23] MEDS: KETOROLAC TROMETH 30 MG/ML 1ML VIAL IV PRN (23:42)
[2024-05-24] VITALS (14 sets, daily range): BP systolic 111–130; BP diastolic 50–87; PULSE 58–111; RESP 16–20; TEMP 97.3–98; O2SAT 93–100
[2024-05-24] MEDS: ALBUTEROL SULF 2.5 MG/0.5ML(0.5%) NEB SOLN NEB ONE (02:30)
[2024-05-24] MEDS ORDERED: ALBUTEROL SULF 2.5 MG/0.5ML(0.5%) NEB SOLN NEB PRN ×2 (06:00→10:45)
[2024-05-24] MEDS ORDERED: GASTROGRAFIN 120 ML SOL ONE (08:49)
[2024-05-24] MEDS: ONDANSETRON HCL 4 MG/2 ML VIAL IV PRN (09:01)
[2024-05-24] MEDS ORDERED: IPRATROPIUM BROM 0.5 MG/2.5ML INH SOL NEB PRN (10:45)
[2024-05-24] MEDS ORDERED: LACTULOSE 20Gm/30ML SOLN PO PRN (10:45)
[2024-05-24] MEDS ORDERED: DEXTROSE (50%) 50ML SYRG IV PRN (10:45)
[2024-05-24] MEDS: InsuLIN REG 1unit/0.01ml Soln (100units/ml) SC SCH (12:00)
[2024-05-24] MEDS: PANTOPRAZOLE 40 MG TAB PO SCH (12:12)
[2024-05-24] MEDS: ASPirin-EC 81 mg tab PO SCH (12:12)
[2024-05-24] MEDS: LOSARTAN POTASSIUM 50 MG TAB PO SCH (12:13)
[2024-05-24 14:04] LABS: Amphetamine Screen, Urine Neg (NEGATIVE); Barbiturate Scree,Urine Neg (NEGATIVE); Benzodiazephine Screen, Urine Neg (NEGATIVE); Cannabinoid Screen, Urine Neg (NEGATIVE); Cocaine Screen, Urine Neg (NEGATIVE); Opiate Scree,Urine Neg (NEGATIVE); Phencyclidine Screen, Urine Neg (NEGATIVE)
[2024-05-24 14:52] LABS: Alanine Aminotransferase 24 U/L (7-40); Albumin 4.5 g/dL (3.2-4.8); Alkaline Phosphatase 122 U/L (46-116); Anion Gap 5 (5-15); Aspartate Aminotransferase 34 U/L (13-40); BUN/Creatinine Ratio 17.1 (10.0-20.0); Blood Urea Nitrogen 28 mg/dL (9-23); Calcium 10.4 mg/dL (8.7-10.4); Carbon Dioxide 28 mmol/L (20-31); Chloride 107 mmol/L (98-107); Glucose 149 mg/dL (74-106); Potassium 4.6 mmol/L (3.5-5.1); Sodium 140 mmol/L (136-145)
[2024-05-24 14:53] LABS: Magnesium 2.6 mg/dL (1.6-2.6); Phosphorus 5.2 mg/dL (2.4-5.1)
[2024-05-24 14:54] LABS: Bilirubin, Total 1.1 mg/dL (0.2-1.0)
[2024-05-24 14:55] LABS: Total Protein 8.5 g/dL (5.7-8.2)
[2024-05-24] MEDS: ACCU-CHEK COMFORT CURVE STRIP VI SCH (15:11)
[2024-05-24] MEDS: SODIUM CHLORIDE 0.9% 1,000 ML IV SCH (15:11)
[2024-05-24] MEDS: ACETAMINOPHEN 325 MG TAB PO PRN (15:24)
[2024-05-24] MEDS: MORPHINE SULFATE INJ 2 MG/ml SYRG IV ONE (16:48)
[2024-05-24] MEDS ORDERED: MORPHINE SULFATE INJ 2 MG/ml SYRG IV PRN (20:00)
[2024-05-24] MEDS: MORPHINE SULFATE INJ 2 MG/ml SYRG IV PRN (23:39)
[2024-05-25] VITALS (11 sets, daily range): BP systolic 118–171; BP diastolic 60–74; PULSE 50–70; RESP 16–19; TEMP 97.6–97.9; O2SAT 96–99
[2024-05-25 07:28] LABS: Anion Gap 6 (5-15); Calcium 9.4 mg/dL (8.7-10.4); Carbon Dioxide 26 mmol/L (20-31); Chloride 109 mmol/L (98-107); Potassium 4.2 mmol/L (3.5-5.1); Sodium 141 mmol/L (136-145)
[2024-05-25 07:34] LABS: BUN/Creatinine Ratio 13.7 (10.0-20.0); Blood Urea Nitrogen 24 mg/dL (9-23); Glucose 102 mg/dL (74-106)
[2024-05-25 08:27] LABS: Basophils # (auto) 0 10 ^3/uL (0-0.2); Basophils % (auto) 0.4 % (0.0-2.0); Eosinophils # (auto) 0.4 10 ^3/uL (0-0.8); Eosinophils % (auto) 7.7 % (0.0-7.0); Hematocrit 37.7 % (36.0-46.0); Hemoglobin 13.2 g/dL (12.2-16.2); Lymphocytes # (auto) 1.1 10 ^3/uL (0.4-5.4); Lymphocytes % (auto) 21.9 % (10.0-50.0); Mean Corpuscular Hemoglobin 31.5 pg (28.0-32.0); Monocytes # (auto) 0.5 10 ^3/uL (0-1.3); Monocytes % (auto) 10.3 % (0.0-12.0); Neutrophils # (auto) 2.9 10 ^3/uL (1.6-8.6); Neutrophils % (auto) 59.7 % (37.0-80.0); Nucleated Red Blood Cells % 0.1 %; Platelet Count (auto) 158 10^3/uL (140-450); Red Blood Cells 4.19 10^6/uL (4.0-5.20); Red Cell Distribution Width 13.3 % (11.8-14.3); White Blood Cell 4.9 10^3/uL (4.4-10.8)
[2024-05-25] MEDS: SODIUM CHLORIDE 0.9% 500 ML IV ONE (10:16)
[2024-05-25] MEDS ORDERED: KETOROLAC TROMETH 30 MG/ML 1ML VIAL IV PRN ×2 (11:30→14:30)
[2024-05-25] MEDS: SODIUM CHLORIDE 0.9% 1,000 ML IV ONE (12:06)
[2024-05-25] MEDS: hydrALAZINE HCL 20 MG/ML VL IV PRN (17:27)
[2024-05-25] MEDS: MORPHINE SULFATE INJ 2 MG/ml SYRG IV PRN (17:28)
[2024-05-25] MEDS: PANTOPRAZOLE 40 MG TAB PO SCH (22:55)
[2024-05-26] VITALS (12 sets, daily range): BP systolic 125–154; BP diastolic 66–77; PULSE 59–64; RESP 16–21; TEMP 97.5–97.8; O2SAT 95–98
[2024-05-26] MEDS: SUCRALFATE 1 GM TAB PO ONE (01:26)
[2024-05-26 07:18] LABS: Basophils # (auto) 0 10 ^3/uL (0-0.2); Basophils % (auto) 0.5 % (0.0-2.0); Eosinophils # (auto) 0.3 10 ^3/uL (0-0.8); Eosinophils % (auto) 7.8 % (0.0-7.0); Hematocrit 38.3 % (36.0-46.0); Hemoglobin 13.1 g/dL (12.2-16.2); Lymphocytes % (auto) 25.4 % (10.0-50.0); Mean Corpuscular Hemoglobin 30.5 pg (28.0-32.0); Mean Corpuscular Hgb Conc. 34.3 g/dL (32.0-36.0); Mean Corpuscular Volume 88.8 fL (80.0-100.0); Monocytes # (auto) 0.4 10 ^3/uL (0-1.3); Monocytes % (auto) 11.4 % (0.0-12.0); Neutrophils # (auto) 2.2 10 ^3/uL (1.6-8.6); Neutrophils % (auto) 54.9 % (37.0-80.0); Nucleated Red Blood Cells % 0.1 %; Platelet Count (auto) 153 10^3/uL (140-450); Red Blood Cells 4.31 10^6/uL (4.0-5.20); Red Cell Distribution Width 13.1 % (11.8-14.3); White Blood Cell 3.9 10^3/uL (4.4-10.8)
[2024-05-26 07:32] LABS: INR 1.35 (0.9-1.15); Partial Thromboplastin Time 29.3 SEC (24.5-34.5)
[2024-05-26 07:36] LABS: Alanine Aminotransferase 18 U/L (7-40); Albumin 3.5 g/dL (3.2-4.8); Alkaline Phosphatase 91 U/L (46-116); Anion Gap 5 (5-15); Aspartate Aminotransferase 17 U/L (13-40); BUN/Creatinine Ratio 10.2 (10.0-20.0); Bilirubin, Total 0.5 mg/dL (0.2-1.0); Blood Urea Nitrogen 17 mg/dL (9-23); Calcium 9.5 mg/dL (8.7-10.4); Carbon Dioxide 25 mmol/L (20-31); Chloride 112 mmol/L (98-107); Glucose 93 mg/dL (74-106); Potassium 4.2 mmol/L (3.5-5.1); Sodium 142 mmol/L (136-145); Total Protein 6.5 g/dL (5.7-8.2)
[2024-05-26] MEDS: hydrALAZINE HCL 20 MG/ML VL IV PRN (08:23)
[2024-05-26] MEDS ORDERED: SODIUM CHLORIDE LOCK 10 ML ONE (13:17)
[2024-05-26] MEDS: diphenhdrAMINE HCL 50 MG/1 ML VL ONE (15:15)
[2024-05-26] MEDS: LIDOCAINE VISCOUS 2% 15ML UD ONE (15:15)
[2024-05-26] MEDS: MIDAZOLAM HCL 5 MG/ML-1ML VIAL ONE (15:15)
[2024-05-26] MEDS: fentaNYL CITRATE 100 MCG/2 ML VL ONE (15:15)
[2024-05-26] MEDS ORDERED: PANT40T PO (16:04)
[2024-05-26] MEDS ORDERED: ACET650T12 PO (16:51)
== END 2024-05-26 18:24 | disposition home or self-care (01) | DRG 241 ==
LOC: ER 15:45 → OVERFLOW 21:21 → WEST WING 05-24 02:05
PROVIDERS: ADMIT Hospitalist; ATTEND Hospitalist
PROC: 0DB68ZX Excision of Stomach, Via Natural or Artificial Opening Endoscopic, Diagnostic (ICD-10-PCS; 2024-05-26)
PROC: 0DB98ZX Excision of Duodenum, Via Natural or Artificial Opening Endoscopic, Diagnostic (ICD-10-PCS; principal; 2024-05-26 15:07)
DX: K29.70 Gastritis, unspecified, without bleeding (principal); K76.6 Portal hypertension; E11.22 Type 2 diabetes mellitus with diabetic chronic kidney disease; I16.0 Hypertensive urgency; K59.00 Constipation, unspecified; K21.9 Gastro-esophageal reflux disease without esophagitis; I12.9 Hypertensive chronic kidney disease with stage 1 through stage 4 chronic kidney disease, or unspecified chronic kidney disease; J44.89 Other specified chronic obstructive pulmonary disease; B19.20 Unspecified viral hepatitis C without hepatic coma; K74.60 Unspecified cirrhosis of liver; J45.909 Unspecified asthma, uncomplicated; E11.51 Type 2 diabetes mellitus with diabetic peripheral angiopathy without gangrene; N18.31 Chronic kidney disease, stage 3a; Z90.710 Acquired absence of both cervix and uterus; Z85.528 Personal history of other malignant neoplasm of kidney; Z87.891 Personal history of nicotine dependence; Z90.49 Acquired absence of other specified parts of digestive tract; Z86.73 Personal history of transient ischemic attack (TIA), and cerebral infarction without residual deficits; Z90.5 Acquired absence of kidney; Z80.6 Family history of leukemia; Z80.8 Family history of malignant neoplasm of other organs or systems; Z83.3 Family history of diabetes mellitus
CPT/HCPCS: 36415; 43239; 71045; 74176; 74250; 76700; 80048; 80053; 80307; 81001; 82962; 83605; 83735; 84100; 85025; 85610; 85730; 86038; 86850; 86900; 86901; 94640; 97163; G0378; J1815; J1885; J2250; J2405

== ENCOUNTER 2024-06-13 13:49 | Emergency (ER) | payer MEDICAID, MEDICARE ==
[~2024-06-13] VITALS: Ht 162.6 cm; Wt 80.8 kg
[~2024-06-13 13:49] MED LIST changes: +ACET650T12 PO; -LOSA-535 PO; -ONDA-144 PO; +PANT40T PO
[2024-06-13 14:39] LABS: Urine Bacteria FEW /hpf (None Seen); Urine Blood TRACE /uL (Negative); Urine Clarity Clear (Clear); Urine Color Yellow (Yellow); Urine Mucus FEW (None Seen); Urine Protein, UAD 2+ (Negative); Urine Specific Gravity 1.025 (1.001-1.035); Urine Urobilinogen 2 mg/dL (Negative); Urine WBC 9 /hpf (0 - 5); Urine pH 5.5 (5.0-9.0)
[2024-06-13 14:43] VITALS: BP 179/87; PULSE 70; RESP 16; O2SAT 98
--- NOTE | 2024-06-13 15:53 | ED.PDOC ---
History of Present Illness HPI Comments 63 y/o F, with a Hx of asthma, CA, CKF, CVA, DM, HTN, liver disease, SC, and TIA, presents with c/o dysuria, nausea, and vomiting for 2 days. Patient reports pain being burning in quality and having similar symptoms with a UTI, recently, to which she endorse improvement s/p Abx Tx. Patient denies having any abdominal pain, diarrhea, hematemesis, or other associated symptoms or modifiers at this time. Chief Complaint: Urinary Time Seen by MD: 15:00 Primary Care Provider: EDIN Reviewed Notes: Nurses Notes, Medications, Allergies Allergies: Coded Allergies: Quinapril (Verified Allergy, Severe, unknown, 08/23/22) Sulfa Antibiotics (Verified Allergy, Severe, 08/23/22) Amlodipine (Verified Allergy, Intermediate, 08/23/22) Gentamicin (Verified Allergy, Intermediate, 08/23/22) Nitroglycerin (Verified Allergy, Intermediate, 08/23/22) Trimethoprim (Verified Allergy, Intermediate, 08/23/22) Cefazolin (Verified Allergy, Unknown, 02/08/24) Cefpodoxime (Verified Allergy, Unknown, 02/08/24) Cephalexin (Verified Allergy, Unknown, 02/08/24) Clavulanic Acid (Verified Allergy, Unknown, 02/06/23) Clindamycin (Verified Allergy, Unknown, 02/06/23) Cyclosporine (Verified Allergy, Unknown, 02/06/23) Dicyclomine (Verified Allergy, Unknown, 02/06/23) Doxycycline (Verified Allergy, Unknown, 02/06/23) Levofloxacin (Verified Allergy, Unknown, unknown, 08/23/22) Linezolid (Verified Allergy, Unknown, 02/06/23) Nitrofurantoin (Verified Allergy, Unknown, 02/06/23) Serotonin (Verified Allergy, Unknown, 08/23/22) Sulfamethoxazole w/Trimethoprim (Verified Allergy, Unknown, 02/06/23) Vancomycin (Verified Allergy, Unknown, 02/06/23) Home Meds Active Scripts Acetaminophen (Acetaminophen Er) 650 Mg Tab, 650 MG PO QIDP PRN for 7 Days, #28 TAB Prov:ANUSHA BEY RESIDENT 05/26/24 Pantoprazole Sodium Sesquihydr (Pantoprazole Sodium) 40 Mg Tab, 40 MG PO DAILY for 30 Days, #30 TAB Prov:ANUSHA BEY [facility] 05/26/24 Fosfomycin Tromethamine (Fosfomycin Tromethamine) 3 Gm Pow, 3 GM PO DAILY for 3 Days, #3 POW take 1 dose then 2nd dose 2 day later, then last dose 2 days after. Prov:KRISTIN COOKNODOTTIE [facility] 05/18/24 Ergocalciferol (VITAMIN D 19492 UNIT) 50,000 [place], [address] UNIT PO Q7D for 90 Days, #12 CAP Prov:DOTTIE CRUZ [facility] 05/18/24 Metoprolol Tartrate (Lopressor) 25 Mg Tb, 25 MG PO BID for 90 Days, #180 TAB Prov:CHETNA JORDAN [facility] 02/19/24 Hydralazine HCl (Hydralazine HCl) 25 Mg Tab, 50 MG PO Q8HR for 90 Days, #540 TAB Prov:CHETNA JORDAN [facility] 02/19/24 Gabapentin (Gabapentin) 100 Mg Cap, 100 MG PO BID for 90 Days, #90 CAP Prov:CHETNA JORDAN [facility] 02/19/24 Atorvastatin Calcium (ATORVASTATIN CALCIUM) 20 Mg Tab, 10 MG PO HS for 90 Days, #45 TAB Prov:CHETNA JORDAN [facility] 02/19/24 Aspirin (Aspirin Low Dose) 81 Mg Tab, 81 MG PO DAILY for 90 Days, #90 TAB Prov:CHETNA JORDAN [facility] 02/19/24 Pantoprazole Sodium Sesquihydr (Pantoprazole Sodium Dr) 40 Mg Tab, 40 MG PO DAILY, #60 TAB Prov:BERTA MONTEMAYOR MD 08/17/23 Meclizine Hcl (Meclizine Hcl) 12.5 Mg Tab, 1 TAB PO TID, #30 TAB Prov:ANTWON YOUNG MD 07/16/22 Hydrocortisone Base (Cortizone-10) 1 % Oin, 1 % EX BID for 10 Days, #1 OIN Prov:ANTWON YOUNG MD 05/13/22 Reported Medications Losartan Potassium & Hydrochlo (Losartan Potassium/Hydroc) 1 Tab Tab, 1 TAB PO DAILY for 30 Days, #30 [100/12.5 MG] 05/25/24 Ondansetron HCl (Ondansetron Hydrochloride) 4 Mg Tab, 1 TAB PO DAILY for 30 Days, #30 05/25/24 Albuterol Sulfate (Albuterol Sulfate Hfa) 108 Mcg/Act Aer, 2 PUFF INH Q4-6HR PRN for 16 Days, #6.7 05/16/24 Cetirizine HCl (Cetirizine Hydrochloride) 10 Mg Tab, 1 TAB PO DAILY 05/16/24 Diphenhydramine Hcl (Banophen) 25 Mg Tab, 1 TAB PO Q8HR PRN for ALLERGIES for 10 Days, #30 05/16/24 Fluticasone Propionate (Nasal) (Fluticasone Propionate) 50 Mcg/Act Spr, 50 MCG NA, SPR 02/06/23 Alogliptin Benzoate (Alogliptin) 12.5 Mg Tab, 12.5 MG PO, TAB one tablet by mouth daily 02/06/23 Clonidine Hydrochloride (Clonidine Hcl) 0.1 Mg Tab, 1 TAB PO DAILY for 30 Days, #30 02/06/23 Information Source: Patient Mode of Arrival: Ambulatory Severity: Moderate Timing: Days Duration: Since onset Prehospital treatment: None Past Medical History PAST MEDICAL HISTORY: Asthma, Cancer, CKF, CVA, DM, HTN, Liver, SC, TIA, UTI'S Surgical History: BTL, Cholecystectomy, Hysterectomy Surgical History (Other): left nephrectomy [employer] ANALYST History: No Pertinent [employer] ANALYST History Family History Family History: No family hx of DM, No family hx of Heart hank, Family hx of Cancer Social History Smoker: Quit Greater Than 1 Year Alcohol: Occasionally Drugs: Marijuana Lives In: Home Constitutional: denies: chills, diaphoresis, fatigue, fever, malaise, sweats, weakness, others EENTM: denies: blurred vision, double vision, ear bleeding, ear discharge, ear drainage, ear pain, ear ringing, eye pain, eye redness, hearing loss, mouth pain, mouth swelling, nasal discharge, nose bleeding, nose congestion, nose pain, photophobia, tearing, throat pain, throat swelling, voice changes, others Respiratory: denies: cough, hemoptysis, orthopnea, SOB at rest, shortness of breath, SOB with excertion, stridor, wheezing, others Cardiovascular: denies: chest pain, dizzy spells, diaphoresis, Dyspnea on exertion, edema, irregular heart beat, left arm pain, lightheadedness, palpitations, PND, syncope, others Gastrointestinal: reports: nausea, vomiting; denies: abdomen distended, abdominal pain, blood streaked bowels, constipated, diarrhea, dysphagia, diffic ulty swallowing, hematemesis, melena, poor appetite, poor fluid intake, rectal bleeding, rectal pain, others Genitourinary: reports: dysuria; denies: abnormal vagina bleeding, burning, dyspareunia, flank pain, frequency, hematuria, incontinence, pain, , vagina discharge, urgency, others Neurological: denies: dizziness, fainting, headache, left sided numbness, left sided weakness, numbness, paresthesia, pre-existing deficit, right sided numbness, right sided weakness, seizure, speech problems, tingling, tremors, weakness, others Musculoskeletal: denies: back pain, gout, joint pain, joint swelling, muscle pain, muscle stiffness, neck pain, others Integumetry: denies: bruises, change in color, change in hair/nails, dryness, laceration, lesions, lumps, rash, wounds, others Allergic/Immunocompromised: denies: Difficulty Healing, Frequent Infections, Hives, Itching, others Hematologic/Lymphatic: denies: anemia, blood clots, easy bleeding, easy bruising, swollen glands, others Endocrine: denies: excessive hunger, excessive sweating, excessive thirst, excessive urination, flushing, intolerance to cold, intolerance to heat, unexplained weight gain, unexplained weight loss, others Psychiatric: denies: anxiety, bipolar disorder, depression, hopeless, panic disorder, schizophrenia, sleepless, suicidal, others All Other Systems: Reviewed and Negative Physical Exam General Appearance: Moderate Distress HEENT: Normal ENT Inspection, Pharynx Normal, TMs Normal Neck: Full Range of Motion, Non-Tender, Normal, Normal Inspection Respiratory: Chest Non-Tender, Lungs Clear, No Accessory Muscle Use, No Respiratory Distress, Normal Breath Sounds Cardiovascular: No Edema, No JVD, No Murmur, No Gallop, Normal Peripheral Pulses, Regular Rate/Rhythm Breast Exam: Deferred Gastrointestinal: No Organomegaly, Non Tender, No Pulsatile Mass, Normal Bowel Sounds, Soft Genitalia: Deferred Pelvic: Deferred Rectal: Deferred Extremities: No calf tenderness, Normal capillary refill, Normal inspection, Normal range of motion, Non-tender, No pedal edema Musculoskeletal : Apperance: Normal Neurologic: Alert, stringer machine tender II-XII nml as Tested, No Motor Deficits, Normal Affect, Normal Mood, No Sensory Deficits Cerebellar Function: Normal Reflexes: Normal Skin: Dry, Normal Color, Warm Peripheral Pulses: 3+ Radial (R), 3+ Radial (L) Lymphatic: No Adenopathy Was a procedure done? Was a procedure done?: No Differential Dx Considerations may include: UTI Electrolyte imbalance X-Ray, Labs, Meds, VS Vital Signs Date Time Temp Pulse Resp B/P (MAP) Pulse Ox O2 Delivery O2 Flow Rate FiO2 06/13/24 14:43 97.6 70 16 179/87 (117) 98 Lab Test 06/13/24 14:04 Range/Units Urine Color Yellow Yellow Urine Clarity Clear Clear Urine pH 5.5 5.0-9.0 Urine Specific [place] 1.025 1.001-1.035 Urine Protein 2+ H Negative Urine Ketones Negative Negative Urine Blood Trace H Negative /uL Urine Nitrite Negative Negative Urine Bilirubin Negative Negative Urine Urobilinogen 2 H Negative mg/dL Urine Leukocyte Esterase 3+ Negative /uL Urine RBC 4 0 - 4 /hpf Urine WBC 9 0 - 5 /hpf Urine Squamous Epithelial Cells Few <5 /hpf Urine Bacteria Few H None Seen /hpf Urine Mucus Few None Seen Urine Glucose Normal Normal mg/dL Patient alert. Came in because of burning on urination. Vitals stable. Answering questions. Ambulating without difficulty. Urinalysis shows UTI. She has many drug allergies. She was given prescription of Cipro. Blood pressure elevated. She was given clonidine. Denies chest pain. Denies shortness of breath. No leg swelling. Saturation pristine on room air. Explained to the patient. Was told to follow up with her primary care physician. Was told to come back if there is any problem. Time of 1ST Reevaluation: 15:30 Reevaluation 1ST: Unchanged Patient Education/Counseling: Diagnosis, Treatment Family Education/Counseling: No Family Present Departure 1 Departure Time of Disposition: 16:13 Impression: Primary Impression: Accelerated hypertension Additional Impression: UTI (urinary tract infection) Qualified Codes: N30.00 - Acute cystitis without hematuria Disposition: 01 HOME / SELF CARE / HOMELESS Condition: Good e-Prescriptions Ciprofloxacin Hcl (Cipro) 500 Mg Tab 1 TAB PO BID for 5 Days, #10 TAB Prov: SAIRA MARIE MD 06/13/24 Discharged With: Self Critical Care Note Critical Care Time?: No Stability Stability form required: No Heart Score Heart Score: Heart Score Response (Comments) Value History N/A 0 EKG N/A 0 Age N/A 0 Risk Factors N/A 0 Troponin N/A 0 Total 0 I personally scribed for SAIRA MARIE MD ([email or web address]) on 06/13/24 at 15:53. Electronically submitted by Vernon Renteria ([email or web address]). SAIRA MARIE MD Jun 13, 2024 15:53
[2024-06-13] MEDS ORDERED: CIPR-173 PO (16:14)
[2024-06-13] MEDS: cloNIDine HCL 0.1 MG TAB PO ONE (18:21)
== END 2024-06-13 18:24 | disposition left against medical advice (07) ==
LOC: ER 13:49
DX: N39.0 Urinary tract infection, site not specified (principal); I12.9 Hypertensive chronic kidney disease with stage 1 through stage 4 chronic kidney disease, or unspecified chronic kidney disease; E11.22 Type 2 diabetes mellitus with diabetic chronic kidney disease; N18.9 Chronic kidney disease, unspecified; I25.2 Old myocardial infarction; J45.909 Unspecified asthma, uncomplicated; F15.90 Other stimulant use, unspecified, uncomplicated; Z86.73 Personal history of transient ischemic attack (TIA), and cerebral infarction without residual deficits; Z85.9 Personal history of malignant neoplasm, unspecified; Z90.49 Acquired absence of other specified parts of digestive tract; Z90.710 Acquired absence of both cervix and uterus; Z98.890 Other specified postprocedural states; Z87.891 Personal history of nicotine dependence; Z88.1 Allergy status to other antibiotic agents; Z88.2 Allergy status to sulfonamides; Z88.8 Allergy status to other drugs, medicaments and biological substances; Z79.82 Long term (current) use of aspirin; Z79.899 Other long term (current) drug therapy
CPT/HCPCS: 81001